=== PATIENT | female | born 1985 | race Caucasian/White ===

== ENCOUNTER 2016-12-02 18:16 | Inpatient (IN) ==
[2016-12-02] MEDS ORDERED: Naloxone 0.4 MG/ML INJ IVP ONE (18:19)
--- NOTE | 2016-12-02 18:27 | Emergency Department Note ---
Disposition Clinical Impression: Altered mental status Qualifiers: Altered mental status type: unspecified Qualified Code(s): R41.82 - Altered mental status, unspecified Disposition: Admitted As Inpatient Condition: Good Time of Disposition: 09:42 General Adult HPI - General Chief complaint: ED Altered Mental Status Stated complaint: AMS Time Seen by Provider: 12/02/16 18:19 Source: EMS Limitations: altered mental status - History of Present Illness Pain Scale: 0 - Related Data Home Medications Medication Instructions Recorded Confirmed Cetirizine HCl [Zyrtec] 10 mg PO DAILY 12/02/16 12/02/16 Fluticasone Propionate Nasal 100 mcg NS DAILY 12/02/16 12/02/16 [Flonase] Montelukast [Singulair] 10 mg PO QPM 12/02/16 12/02/16 Sertraline [Zoloft] 50 mg PO DAILY 12/02/16 12/02/16 Previous Rx's Medication Instructions Recorded OxyCODONE Immed Rel [Roxicodone 5 10 mg PO Q6HR PRN #20 tab 12/08/16 MG] Allergies Allergy/AdvReac Type Severity Reaction Status Date / Time NSAIDS (Non-Steroidal Allergy Dizziness Verified 10/01/16 00:00 Anti-Inflamma Past Medical History - Past Medical History Medical history: Reports: asthma Surgical history: Reports: cholecystectomy (03/2003) Psychiatric history: Reports: no psych history [employer] history: Reports: bilateral tubal ligation - Social History Smoking Status: Current every day smoker Smokeless Tobacco Status: No Alcohol use: Reports: none Drug use: Reports: none Physical Exam - General Limitations: altered mental status General appearance: restraints present Course Vital Signs Temperature 98.8 F 12/02/16 18:18 Pulse Rate 94 12/02/16 18:18 Respiratory Rate 16 12/02/16 18:18 Blood Pressure 109/68 12/02/16 18:18 O2 Sat by Pulse Oximetry 99 12/02/16 18:18 Temperature 98.3 F 12/08/16 07:30 Pulse Rate 76 12/08/16 07:30 Respiratory Rate 15 12/08/16 07:30 Blood Pressure 120/76 12/08/16 07:30 O2 Sat by Pulse Oximetry 97 12/08/16 07:30 Oxygen Delivery Oxygen Delivery Room Air Medical Decision Making - Lab Data Result diagrams: 12/08/16 01:05 12/08/16 01:05 Lab Results 12/02/16 12/02/16 12/02/16 Range/Units 18:29 18:29 18:29 WBC 7.9 (4.3-11.1) K/mcL RBC 4.81 (3.82-4.97) M/mcL Hgb 14.0 (11.5-15.4) g/dL Hct 40.0 (35.3-44.9) % MCV 83.2 (83.0-100.0) fL MCH 29.1 (28.0-33.3) pg MCHC 35.0 (31.6-35.5) g/dL RDW 12.6 (11.5-14.5) % Plt Count 290 (140-400) K/mcL MPV 9.4 (9.4-12.4) fL Immature Gran % 0.5 (0-4) % Seg Neutrophils % 68.3 % Lymphocytes % 23.4 % Monocytes % 7.1 % Eosinophils % 0.4 % Basophils % 0.3 % Neutrophils # 5.4 (1.6-8.9) K/mcL Lymphocytes # 1.8 (0.6-4.6) K/mcL Monocytes # 0.6 (0.0-1.3) K/mcL Eosinophils # 0.0 (0.0-0.6) K/mcL Basophils # 0.0 (0.0-0.2) K/mcL PT 12.1 (9.4-12.1) Seconds INR 1.1 APTT 31.6 (26.0-36.0) Seconds VBG pH (7.32-7.42) pH Units VBG pCO2 (41-51) mmHg VBG pO2 (25-40) mmHg VBG HCO3 (21-27) mEq/L Sodium 128 L (136-145) mEq/L Potassium 3.5 (3.5-4.5) mEq/L Chloride 95 L (98-109) mEq/L Carbon Dioxide 22 (19-29) mEq/L BUN 6 L (7-20) mg/dL Creatinine 0.74 (0.57-1.11) mg/dL Est GFR ( Amer) > 60 (> 60) Est GFR (Non-Af Amer) > 60 (> 60) BUN/Creatinine Ratio 8 (6-26) Glucose 115 H (70-99) mg/dL POC Glucose (58-89) Calculated Osmolality 265 L (280-300) Calcium 9.6 (8.6-10.8) mg/dL Ionized Calcium (1.15-1.35) mmol/L Phosphorus (2.3-4.7) mg/dL Magnesium (1.6-2.6) mg/dL Total Bilirubin 0.9 (0.2-1.2) mg/dL Direct Bilirubin 0.4 (0.0-0.5) mg/dL Indirect Bilirubin 0.5 (0.0-1.2) mg/dL AST 137 H (5-34) Units/L ALT 351 H (0-55) Units/L Alkaline Phosphatase 126 (38-126) Units/L Creatine Kinase 42 (29-168) Units/L Troponin I (0-0.03) ng/mL Serum Total Protein 7.8 (6.0-8.3) g/dL Albumin 4.0 (3.5-5.0) g/dL Globulin 3.8 H (2.4-3.5) g/dL Albumin/Globulin Ratio 1.1 (1.1-2.2) Urine Color (Yellow) Urine Clarity (Clear) Urine pH (5.0-8.0) pH Units Ur Specific [place] (1.010-1.025) Urine Protein (Neg-Trace) mg/dL Urine Glucose (UA) (Normal) mg/dL Urine Ketones (Negative) mg/dL Urine Blood (Negative) Urine Nitrite (Negative) Urine Bilirubin (Negative) Urine Urobilinogen (Normal) mg/dL Ur Leukocyte Esterase (Negative) Ur Culture Indicated? (NO) Urine Test (Negative) Salicylates (15-30) mg/dL Urine Opiates Screen (Sjfxsj=402) ng/mL Acetaminophen (10-30) mcg/mL Ur Barbiturates Screen (Coeyid=488) ng/mL Ur Phencyclidine Scrn (Cutoff=25) ng/mL Ur Amphetamines Screen (Ywopir=5588) ng/mL U Benzodiazepines Scrn (Mtuzih=523) ng/mL Urine Cocaine Screen (Cutoff= 300) ng/mL U Marijuana (THC) Screen (Cutoff = 50) ng/mL Ethyl Alcohol < 10 (0-10) mg/dL 12/02/16 12/02/16 12/02/16 Range/Units 18:29 18:29 18:32 WBC (4.3-11.1) K/mcL RBC (3.82-4.97) M/mcL Hgb (11.5-15.4) g/dL Hct (35.3-44.9) % MCV (83.0-100.0) fL MCH (28.0-33.3) pg MCHC (31.6-35.5) g/dL RDW (11.5-14.5) % Plt Count (140-400) K/mcL MPV (9.4-12.4) fL Immature Gran % (0-4) % Seg Neutrophils % % Lymphocytes % % Monocytes % % Eosinophils % % Basophils % % Neutrophils # (1.6-8.9) K/mcL Lymphocytes # (0.6-4.6) K/mcL Monocytes # (0.0-1.3) K/mcL Eosinophils # (0.0-0.6) K/mcL Basophils # (0.0-0.2) K/mcL PT (9.4-12.1) Seconds INR APTT (26.0-36.0) Seconds VBG pH (7.32-7.42) pH Units VBG pCO2 (41-51) mmHg VBG pO2 (25-40) mmHg VBG HCO3 (21-27) mEq/L Sodium (136-145) mEq/L Potassium (3.5-4.5) mEq/L Chloride (98-109) mEq/L Carbon Dioxide (19-29) mEq/L BUN (7-20) mg/dL Creatinine (0.57-1.11) mg/dL Est GFR ( Amer) (> 60) Est GFR (Non-Af Amer) (> 60) BUN/Creatinine Ratio (6-26) Glucose (70-99) mg/dL POC Glucose (58-89) Calculated Osmolality (280-300) Calcium (8.6-10.8) mg/dL Ionized Calcium (1.15-1.35) mmol/L Phosphorus (2.3-4.7) mg/dL Magnesium (1.6-2.6) mg/dL Total Bilirubin (0.2-1.2) mg/dL Direct Bilirubin (0.0-0.5) mg/dL Indirect Bilirubin (0.0-1.2) mg/dL AST (5-34) Units/L ALT (0-55) Units/L Alkaline Phosphatase (38-126) Units/L Creatine Kinase (29-168) Units/L Troponin I 0.00 (0-0.03) ng/mL Serum Total Protein (6.0-8.3) g/dL Albumin (3.5-5.0) g/dL Globulin (2.4-3.5) g/dL Albumin/Globulin Ratio (1.1-2.2) Urine Color Yellow (Yellow) Urine Clarity Clear (Clear) Urine pH 7.0 (5.0-8.0) pH Units Ur Specific [place] 1.006 L (1.010-1.025) Urine Protein Negative (Neg-Trace) mg/dL Urine Glucose (UA) Normal (Normal) mg/dL Urine Ketones 15 H (Negative) mg/dL Urine Blood Negative (Negative) Urine Nitrite Negative (Negative) Urine Bilirubin Negative (Negative) Urine Urobilinogen Normal (Normal) mg/dL Ur Leukocyte Esterase Negative (Negative) Ur Culture Indicated? NO (NO) Urine Test (Negative) Salicylates < 5.0 L (15-30) mg/dL Urine Opiates Screen (Gnogyh=460) ng/mL Acetaminophen < 1.0 L (10-30) mcg/mL Ur Barbiturates Screen (Xsbwyw=439) ng/mL Ur Phencyclidine Scrn (Cutoff=25) ng/mL Ur Amphetamines Screen (Iehhya=1448) ng/mL U Benzodiazepines Scrn (Yezmfh=785) ng/mL Urine Cocaine Screen (Cutoff= 300) ng/mL U Marijuana (THC) Screen (Cutoff = 50) ng/mL Ethyl Alcohol (0-10) mg/dL 12/02/16 12/02/16 12/02/16 Range/Units 18:32 18:32 19:12 WBC (4.3-11.1) K/mcL RBC (3.82-4.97) M/mcL Hgb (11.5-15.4) g/dL Hct (35.3-44.9) % MCV (83.0-100.0) fL MCH (28.0-33.3) pg MCHC (31.6-35.5) g/dL RDW (11.5-14.5) % Plt Count (140-400) K/mcL MPV (9.4-12.4) fL Immature Gran % (0-4) % Seg Neutrophils % % Lymphocytes % % Monocytes % % Eosinophils % % Basophils % % Neutrophils # (1.6-8.9) K/mcL Lymphocytes # (0.6-4.6) K/mcL Monocytes # (0.0-1.3) K/mcL Eosinophils # (0.0-0.6) K/mcL Basophils # (0.0-0.2) K/mcL PT (9.4-12.1) Seconds INR APTT (26.0-36.0) Seconds VBG pH 7.42 (7.32-7.42) pH Units VBG pCO2 38 L (41-51) mmHg VBG pO2 59 H (25-40) mmHg VBG HCO3 24.6 (21-27) mEq/L Sodium (136-145) mEq/L Potassium (3.5-4.5) mEq/L Chloride (98-109) mEq/L Carbon Dioxide (19-29) mEq/L BUN (7-20) mg/dL Creatinine (0.57-1.11) mg/dL Est GFR ( Amer) (> 60) Est GFR (Non-Af Amer) (> 60) BUN/Creatinine Ratio (6-26) Glucose (70-99) mg/dL POC Glucose (58-89) Calculated Osmolality (280-300) Calcium (8.6-10.8) mg/dL Ionized Calcium (1.15-1.35) mmol/L Phosphorus (2.3-4.7) mg/dL Magnesium (1.6-2.6) mg/dL Total Bilirubin (0.2-1.2) mg/dL Direct Bilirubin (0.0-0.5) mg/dL Indirect Bilirubin (0.0-1.2) mg/dL AST (5-34) Units/L ALT (0-55) Units/L Alkaline Phosphatase (38-126) Units/L Creatine Kinase (29-168) Units/L Troponin I (0-0.03) ng/mL Serum Total Protein (6.0-8.3) g/dL Albumin (3.5-5.0) g/dL Globulin (2.4-3.5) g/dL Albumin/Globulin Ratio (1.1-2.2) Urine Color (Yellow) Urine Clarity (Clear) Urine pH (5.0-8.0) pH Units Ur Specific [place] (1.010-1.025) Urine Protein (Neg-Trace) mg/dL Urine Glucose (UA) (Normal) mg/dL Urine Ketones (Negative) mg/dL Urine Blood (Negative) Urine Nitrite (Negative) Urine Bilirubin (Negative) Urine Urobilinogen (Normal) mg/dL Ur Leukocyte Esterase (Negative) Ur Culture Indicated? (NO) Urine Test Negative (Negative) Salicylates (15-30) mg/dL Urine Opiates Screen Negative (Oslvka=966) ng/mL Acetaminophen (10-30) mcg/mL Ur Barbiturates Screen Negative (Jnycnh=597) ng/mL Ur Phencyclidine Scrn Negative (Cutoff=25) ng/mL Ur Amphetamines Screen Negative (Bjtdpz=7216) ng/mL U Benzodiazepines Scrn Negative (Lxasgi=071) ng/mL Urine Cocaine Screen Negative (Cutoff= 300) ng/mL U Marijuana (THC) Screen Negative (Cutoff = 50) ng/mL Ethyl Alcohol (0-10) mg/dL 12/02/16 12/02/16 Range/Units 20:54 21:46 WBC (4.3-11.1) K/mcL RBC (3.82-4.97) M/mcL Hgb (11.5-15.4) g/dL Hct (35.3-44.9) % MCV (83.0-100.0) fL MCH (28.0-33.3) pg MCHC (31.6-35.5) g/dL RDW (11.5-14.5) % Plt Count (140-400) K/mcL MPV (9.4-12.4) fL Immature Gran % (0-4) % Seg Neutrophils % % Lymphocytes % % Monocytes % % Eosinophils % % Basophils % % Neutrophils # (1.6-8.9) K/mcL Lymphocytes # (0.6-4.6) K/mcL Monocytes # (0.0-1.3) K/mcL Eosinophils # (0.0-0.6) K/mcL Basophils # (0.0-0.2) K/mcL PT (9.4-12.1) Seconds INR APTT (26.0-36.0) Seconds VBG pH (7.32-7.42) pH Units VBG pCO2 (41-51) mmHg VBG pO2 (25-40) mmHg VBG HCO3 (21-27) mEq/L Sodium (136-145) mEq/L Potassium (3.5-4.5) mEq/L Chloride (98-109) mEq/L Carbon Dioxide (19-29) mEq/L BUN (7-20) mg/dL Creatinine (0.57-1.11) mg/dL Est GFR ( Amer) (> 60) Est GFR (Non-Af Amer) (> 60) BUN/Creatinine Ratio (6-26) Glucose (70-99) mg/dL POC Glucose 103 H (58-89) Calculated Osmolality (280-300) Calcium (8.6-10.8) mg/dL Ionized Calcium 1.06 L (1.15-1.35) mmol/L Phosphorus 2.6 (2.3-4.7) mg/dL Magnesium 1.3 L (1.6-2.6) mg/dL Total Bilirubin (0.2-1.2) mg/dL Direct Bilirubin (0.0-0.5) mg/dL Indirect Bilirubin (0.0-1.2) mg/dL AST (5-34) Units/L ALT (0-55) Units/L Alkaline Phosphatase (38-126) Units/L Creatine Kinase (29-168) Units/L Troponin I (0-0.03) ng/mL Serum Total Protein (6.0-8.3) g/dL Albumin (3.5-5.0) g/dL Globulin (2.4-3.5) g/dL Albumin/Globulin Ratio (1.1-2.2) Urine Color (Yellow) Urine Clarity (Clear) Urine pH (5.0-8.0) pH Units Ur Specific [place] (1.010-1.025) Urine Protein (Neg-Trace) mg/dL Urine Glucose (UA) (Normal) mg/dL Urine Ketones (Negative) mg/dL Urine Blood (Negative) Urine Nitrite (Negative) Urine Bilirubin (Negative) Urine Urobilinogen (Normal) mg/dL Ur Leukocyte Esterase (Negative) Ur Culture Indicated? (NO) Urine Test (Negative) Salicylates (15-30) mg/dL Urine Opiates Screen (Rmdoiu=097) ng/mL Acetaminophen (10-30) mcg/mL Ur Barbiturates Screen (Zjkyya=762) ng/mL Ur Phencyclidine Scrn (Cutoff=25) ng/mL Ur Amphetamines Screen (Unfvzi=2999) ng/mL U Benzodiazepines Scrn (Usekbj=680) ng/mL Urine Cocaine Screen (Cutoff= 300) ng/mL U Marijuana (THC) Screen (Cutoff = 50) ng/mL Ethyl Alcohol (0-10) mg/dL Critical Care Time Critical Care Time: Yes Total Critical Care Time: 60 Attestation: Presented with altered mental status requiring extensive workup and admission to the hospital Attestation Statement - Attestation Attestation: I examined this patient and my medical decision-making was reviewed with the Resident Physician. I agree with the documented findings, disposition and treatment plan as described except to the extent set forth below. [id number] time provided Patient presents by EMS with alteration in mental status. She was unable to convey any meaningful history upon arrival. She does respond to painful stimuli and to the ammonia capsule. She is unable to answer my questions or follow commands with intent and purpose. Etiology uncertain. Workup to evaluate for acute infectious or metabolic process. She will also receive a CT scan of her head and urine drug screen. 18:59: Patient required IV Valium for completion of her CT scan. She did become agitated in the CT scanner. 19:59: CT result as transcribed by the radiologist shows motion artifact versus ischemic changes. I favor the former. Her physical symptoms are not consistent with an acute ischemic stroke
[2016-12-02 18:43] LABS: Basophils % 0.3 %; Eosinophils % 0.4 %; Immature Granulocytes % 0.5 % (0-4); Lymphocytes # 1.8 K/mcL (0.6-4.6); Lymphocytes % 23.4 %; Mean Corpuscular Hemoglobin 29.1 pg (28.0-33.3); Mean Corpuscular Volume 83.2 fL (83.0-100.0); Mean Platelet Volume 9.4 fL (9.4-12.4); Monocytes # 0.6 K/mcL (0.0-1.3); Monocytes % 7.1 %; Neutrophils # 5.4 K/mcL (1.6-8.9); Platelet Count 290 K/mcL (140-400); Red Blood Count 4.81 M/mcL (3.82-4.97); Red Cell Distribution Width 12.6 % (11.5-14.5); Segmented Neutrophils % 68.3 %
[2016-12-02 18:48] LABS: INR 1.1; Prothrombin Time 12.1 Seconds (9.4-12.1)
[2016-12-02] MEDS ORDERED: diazePAM 10 MG/2 ML SYRINGE ONE (18:48)
[2016-12-02 18:50] LABS: Bilirubin,Urine Negative (Negative); Blood,Urine Negative (Negative); Clarity,Urine Clear (Clear); Color,Urine Yellow (Yellow); Glucose,Urine (UA) Normal (Normal); Ketones,Urine 15 mg/dL (Negative); Leukocyte Esterase,Urine Negative (Negative); Nitrite,Urine Negative (Negative); Protein,Urine Negative (Neg-Trace); Specific Gravity,Urine 1.006 (1.010-1.025); Urobilinogen,Urine Normal (Normal)
[2016-12-02 18:51] LABS: Activated Partial Thrombo Time 31.6 Seconds (26.0-36.0)
[2016-12-02 18:55] LABS: Amphetamine Screen,Urine Negative ng/mL (Cutoff=1000); Barbiturate Screen,Urine Negative ng/mL (Cutoff=200); Benzodiazepines Screen,Urine Negative ng/mL (Cutoff=200); Cannabinoid Screen,Urine Negative ng/mL (Cutoff = 50); Cocaine Screen,Urine Negative ng/mL (Cutoff= 300); Opiate Screen,Urine Negative ng/mL (Cutoff=300); Phencyclidine Screen,Urine Negative ng/mL (Cutoff=25)
[2016-12-02 18:59] LABS: Acetaminophen < 1.0 mcg/mL (10-30); Alanine Aminotransferase 351 Units/L (0-55); Albumin/Globulin Ratio 1.1 (1.1-2.2); Alkaline Phosphatase 126 Units/L (38-126); Aspartate Amino Transferase 137 Units/L (5-34); BUN/Creatinine Ratio 8 (6-26); Bilirubin,Direct 0.4 mg/dL (0.0-0.5); Bilirubin,Indirect 0.5 mg/dL (0.0-1.2); Bilirubin,Total 0.9 mg/dL (0.2-1.2); Blood Urea Nitrogen 6 mg/dL (7-20); Calcium 9.6 mg/dL (8.6-10.8); Carbon Dioxide 22 mEq/L (19-29); Chloride 95 mEq/L (98-109); Ethanol < 10 mg/dL (0-10); Globulin 3.8 g/dL (2.4-3.5); Glucose 115 mg/dL (70-99); Osmolality,Calculated 265 (280-300); Potassium 3.5 mEq/L (3.5-4.5); Salicylate < 5.0 mg/dL (15-30); Sodium 128 mEq/L (136-145); Total Protein 7.8 g/dL (6.0-8.3); eGFR For African Americans > 60 (> 60); eGFR For Non-African Americans > 60 (> 60)
[2016-12-02 19:09] LABS: Creatine Kinase 42 Units/L (29-168)
[2016-12-02] MEDS ORDERED: 0.9 % Sodium Chloride 1,000 ML IVC ONE (19:14)
--- NOTE | 2016-12-02 19:17 | Emergency Department Note ---
Disposition Clinical Impression: Altered mental status Qualifiers: Altered mental status type: unspecified Qualified Code(s): R41.82 - Altered mental status, unspecified Disposition: Admitted As Inpatient Condition: Fair Referrals: NO,PCP [Primary Care Provider] - Forms: ED Satisfaction Letter Time of Disposition: 19:28 Altered Mental Status HPI - General Chief Complaint: ED Altered Mental Status Stated Complaint: AMS Time Seen by Provider: 12/02/16 18:19 Source: EMS Mode of arrival: EMS Limitations: altered mental status Nursing Notes Reviewed: Yes Vital Signs Reviewed: Yes - History of Present Illness HPI Narrative: 31-year-old female presents EMS for altered mental status. EMS reports the patient was found the home unresponsive. She was initially combative. States around 1400 this afternoon she had been complaining of a migraine headache. Upon presentation else at bedside on arrival patient was initially unresponsive but responded to Ammonia tablet. Pupils were equal round and reactive were not constructed. Narcan was given with no response. Initial Accu check by EMS was 104. She is not have any family members or bystanders at bedside to assist with evaluation. She will occasionally awaken but quickly goes back to supine. No obvious signs of trauma. Concern this may be a post ictal state or polysubstance use. Altered mental status workup initiated, CT of the head and cervical spine, aspiration precautions, urinalysis with Theodore catheter, tox screen. Patient is not have signs of a rash to suggest infection or meningitis. She is afebrile. - Related Data Home Medications Medication Instructions Recorded Confirmed Cetirizine HCl [Zyrtec] 10 mg PO DAILY 12/02/16 12/02/16 Fluticasone Propionate Nasal 100 mcg NS DAILY 12/02/16 12/02/16 [Flonase] Montelukast [Singulair] 10 mg PO QPM 12/02/16 12/02/16 Sertraline [Zoloft] 50 mg PO DAILY 12/02/16 12/02/16 Allergies Allergy/AdvReac Type Severity Reaction Status Date / Time NSAIDS (Non-Steroidal Allergy Dizziness Verified 10/01/16 00:00 Anti-Inflamma Limitations: ROS unobtainable due to patients medical condition Past Medical History - Past Medical History Source: unable to obtain Medical history: Reports: asthma Surgical history: Reports: cholecystectomy (03/2003) Psychiatric history: Reports: no psych history 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 - Social History Smoking Status: Current every day smoker Smokeless Tobacco Status: No Alcohol use: Reports: none Drug use: Reports: none Physical Exam - General Limitations: altered mental status General appearance: in no apparent distress, obtunded, restraints present - Head Head exam: atraumatic, normocephalic, normal inspection - Eye Eye exam: Present: normal appearance, PERRL, EOMI, mydriasis - ENT ENT exam: normal exam, normal oropharynx, mucous membranes moist - Neck Neck exam: Present: normal inspection, full ROM, trachea midline - Chest Chest inspection: Present: normal inspection, symmetric chest wall rise - Respiratory Respiratory exam: Present: normal lung sounds bilaterally. Absent: respiratory distress, wheezes - Cardiovascular Cardiovascular exam: Present: regular rate, normal rhythm, normal heart sounds - Abdominal Exam Abdominal exam: Present: soft, Non-Tender, normal bowel sounds. Absent: tenderness, distention, guarding, rebound, rigidity - Extremities Exam Extremities exam: Present: normal inspection, full ROM, normal capillary refill. Absent: tenderness, pedal edema - Psychiatric Psychiatric exam: Present: flat affect Course Course Narrative: 31-year-old female presents with altered mental status. No signs of trauma. No rash patient is afebrile. She was responsive to ammonia tablet. Initial POC glucose 104 via EMS. Glucose is 115 here. Moves all 4 extremities without any focal neural deficits. Withdrawals the pain and opens her eyes. She is protecting her airway with good oxygen saturation. Her workup here is negative for any toxic substance, intracranial abnormality, or infection. There is concern for motion artifact vs possible posterior occipital attenuation but clinically this is not consistent with presentation to suggest acute ischemic stroke. Will not continue with additional imaging such as MRI. Possible concern for dehydration with low sodium 128. Will give her normal saline fluids to replenish. She required 10 mg of Valium to allow for proper evaluation with CT imaging. She is currently appended from the medication. CT of the head cervical spine are negative. She will require admission for her altered mental status and observation. - Consultations Consultation #1: Spoke with on-call hospitalist geo Mitchell to admit for altered mental status. No further orders at this time Vital Signs Temperature 98.8 F 12/02/16 18:18 Pulse Rate 94 12/02/16 18:18 Respiratory Rate 16 12/02/16 18:18 Blood Pressure 109/68 12/02/16 18:18 O2 Sat by Pulse Oximetry 99 12/02/16 18:18 Temperature 98.4 F 12/02/16 19:39 Pulse Rate 75 12/02/16 19:39 Respiratory Rate 16 12/02/16 19:39 Blood Pressure 108/73 12/02/16 19:39 O2 Sat by Pulse Oximetry 98 12/02/16 19:39 Oxygen Delivery Oxygen Delivery Room Air Altered Mental Status - Medical Records Medical records reviewed: Yes I reviewed the patient's medical records. - Lab Data Lab results reviewed: Yes I reviewed the patient's lab results. Result diagrams: 12/02/16 18:29 12/02/16 18:29 Lab Results 12/02/16 12/02/16 12/02/16 Range/Units 18:29 18:29 18:29 WBC 7.9 (4.3-11.1) K/mcL RBC 4.81 (3.82-4.97) M/mcL Hgb 14.0 (11.5-15.4) g/dL Hct 40.0 (35.3-44.9) % MCV 83.2 (83.0-100.0) fL MCH 29.1 (28.0-33.3) pg MCHC 35.0 (31.6-35.5) g/dL RDW 12.6 (11.5-14.5) % Plt Count 290 (140-400) K/mcL MPV 9.4 (9.4-12.4) fL Immature Gran % 0.5 (0-4) % Seg Neutrophils % 68.3 % Lymphocytes % 23.4 % Monocytes % 7.1 % Eosinophils % 0.4 % Basophils % 0.3 % Neutrophils # 5.4 (1.6-8.9) K/mcL Lymphocytes # 1.8 (0.6-4.6) K/mcL Monocytes # 0.6 (0.0-1.3) K/mcL Eosinophils # 0.0 (0.0-0.6) K/mcL Basophils # 0.0 (0.0-0.2) K/mcL PT 12.1 (9.4-12.1) Seconds INR 1.1 APTT 31.6 (26.0-36.0) Seconds VBG pH (7.32-7.42) pH Units VBG pCO2 (41-51) mmHg VBG pO2 (25-40) mmHg VBG HCO3 (21-27) mEq/L Sodium 128 L (136-145) mEq/L Potassium 3.5 (3.5-4.5) mEq/L Chloride 95 L (98-109) mEq/L Carbon Dioxide 22 (19-29) mEq/L BUN 6 L (7-20) mg/dL Creatinine 0.74 (0.57-1.11) mg/dL Est GFR ( Amer) > 60 (> 60) Est GFR (Non-Af Amer) > 60 (> 60) BUN/Creatinine Ratio 8 (6-26) Glucose 115 H (70-99) mg/dL Calculated Osmolality 265 L (280-300) Calcium 9.6 (8.6-10.8) mg/dL Total Bilirubin 0.9 (0.2-1.2) mg/dL Direct Bilirubin 0.4 (0.0-0.5) mg/dL Indirect Bilirubin 0.5 (0.0-1.2) mg/dL AST 137 H (5-34) Units/L ALT 351 H (0-55) Units/L Alkaline Phosphatase 126 (38-126) Units/L Creatine Kinase 42 (29-168) Units/L Troponin I (0-0.03) ng/mL Serum Total Protein 7.8 (6.0-8.3) g/dL Albumin 4.0 (3.5-5.0) g/dL Globulin 3.8 H (2.4-3.5) g/dL Albumin/Globulin Ratio 1.1 (1.1-2.2) Urine Color (Yellow) Urine Clarity (Clear) Urine pH (5.0-8.0) pH Units Ur Specific [place] (1.010-1.025) Urine Protein (Neg-Trace) mg/dL Urine Glucose (UA) (Normal) mg/dL Urine Ketones (Negative) mg/dL Urine Blood (Negative) Urine Nitrite (Negative) Urine Bilirubin (Negative) Urine Urobilinogen (Normal) mg/dL Ur Leukocyte Esterase (Negative) Ur Culture Indicated? (NO) Urine Test (Negative) Salicylates (15-30) mg/dL Urine Opiates Screen (Gxdgfu=287) ng/mL Acetaminophen (10-30) mcg/mL Ur Barbiturates Screen (Dfpskr=662) ng/mL Ur Phencyclidine Scrn (Cutoff=25) ng/mL Ur Amphetamines Screen (Ekjmao=8280) ng/mL U Benzodiazepines Scrn (Lutrnm=127) ng/mL Urine Cocaine Screen (Cutoff= 300) ng/mL U Marijuana (THC) Screen (Cutoff = 50) ng/mL Ethyl Alcohol < 10 (0-10) mg/dL 12/02/16 12/02/16 12/02/16 Range/Units 18:29 18:29 18:32 WBC (4.3-11.1) K/mcL RBC (3.82-4.97) M/mcL Hgb (11.5-15.4) g/dL Hct (35.3-44.9) % MCV (83.0-100.0) fL MCH (28.0-33.3) pg MCHC (31.6-35.5) g/dL RDW (11.5-14.5) % Plt Count (140-400) K/mcL MPV (9.4-12.4) fL Immature Gran % (0-4) % Seg Neutrophils % % Lymphocytes % % Monocytes % % Eosinophils % % Basophils % % Neutrophils # (1.6-8.9) K/mcL Lymphocytes # (0.6-4.6) K/mcL Monocytes # (0.0-1.3) K/mcL Eosinophils # (0.0-0.6) K/mcL Basophils # (0.0-0.2) K/mcL PT (9.4-12.1) Seconds INR APTT (26.0-36.0) Seconds VBG pH (7.32-7.42) pH Units VBG pCO2 (41-51) mmHg VBG pO2 (25-40) mmHg VBG HCO3 (21-27) mEq/L Sodium (136-145) mEq/L Potassium (3.5-4.5) mEq/L Chloride (98-109) mEq/L Carbon Dioxide (19-29) mEq/L BUN (7-20) mg/dL Creatinine (0.57-1.11) mg/dL Est GFR ( Amer) (> 60) Est GFR (Non-Af Amer) (> 60) BUN/Creatinine Ratio (6-26) Glucose (70-99) mg/dL Calculated Osmolality (280-300) Calcium (8.6-10.8) mg/dL Total Bilirubin (0.2-1.2) mg/dL Direct Bilirubin (0.0-0.5) mg/dL Indirect Bilirubin (0.0-1.2) mg/dL AST (5-34) Units/L ALT (0-55) Units/L Alkaline Phosphatase (38-126) Units/L Creatine Kinase (29-168) Units/L Troponin I 0.00 (0-0.03) ng/mL Serum Total Protein (6.0-8.3) g/dL Albumin (3.5-5.0) g/dL Globulin (2.4-3.5) g/dL Albumin/Globulin Ratio (1.1-2.2) Urine Color Yellow (Yellow) Urine Clarity Clear (Clear) Urine pH 7.0 (5.0-8.0) pH Units Ur Specific [place] 1.006 L (1.010-1.025) Urine Protein Negative (Neg-Trace) mg/dL Urine Glucose (UA) Normal (Normal) mg/dL Urine Ketones 15 H (Negative) mg/dL Urine Blood Negative (Negative) Urine Nitrite Negative (Negative) Urine Bilirubin Negative (Negative) Urine Urobilinogen Normal (Normal) mg/dL Ur Leukocyte Esterase Negative (Negative) Ur Culture Indicated? NO (NO) Urine Test (Negative) Salicylates < 5.0 L (15-30) mg/dL Urine Opiates Screen (Gnpuvr=888) ng/mL Acetaminophen < 1.0 L (10-30) mcg/mL Ur Barbiturates Screen (Bcrtiq=224) ng/mL Ur Phencyclidine Scrn (Cutoff=25) ng/mL Ur Amphetamines Screen (Qmotqy=4955) ng/mL U Benzodiazepines Scrn (Tikmtw=865) ng/mL Urine Cocaine Screen (Cutoff= 300) ng/mL U Marijuana (THC) Screen (Cutoff = 50) ng/mL Ethyl Alcohol (0-10) mg/dL 12/02/16 12/02/16 12/02/16 Range/Units 18:32 18:32 19:12 WBC (4.3-11.1) K/mcL RBC (3.82-4.97) M/mcL Hgb (11.5-15.4) g/dL Hct (35.3-44.9) % MCV (83.0-100.0) fL MCH (28.0-33.3) pg MCHC (31.6-35.5) g/dL RDW (11.5-14.5) % Plt Count (140-400) K/mcL MPV (9.4-12.4) fL Immature Gran % (0-4) % Seg Neutrophils % % Lymphocytes % % Monocytes % % Eosinophils % % Basophils % % Neutrophils # (1.6-8.9) K/mcL Lymphocytes # (0.6-4.6) K/mcL Monocytes # (0.0-1.3) K/mcL Eosinophils # (0.0-0.6) K/mcL Basophils # (0.0-0.2) K/mcL PT (9.4-12.1) Seconds INR APTT (26.0-36.0) Seconds VBG pH 7.42 (7.32-7.42) pH Units VBG pCO2 38 L (41-51) mmHg VBG pO2 59 H (25-40) mmHg VBG HCO3 24.6 (21-27) mEq/L Sodium (136-145) mEq/L Potassium (3.5-4.5) mEq/L Chloride (98-109) mEq/L Carbon Dioxide (19-29) mEq/L BUN (7-20) mg/dL Creatinine (0.57-1.11) mg/dL Est GFR ( Amer) (> 60) Est GFR (Non-Af Amer) (> 60) BUN/Creatinine Ratio (6-26) Glucose (70-99) mg/dL Calculated Osmolality (280-300) Calcium (8.6-10.8) mg/dL Total Bilirubin (0.2-1.2) mg/dL Direct Bilirubin (0.0-0.5) mg/dL Indirect Bilirubin (0.0-1.2) mg/dL AST (5-34) Units/L ALT (0-55) Units/L Alkaline Phosphatase (38-126) Units/L Creatine Kinase (29-168) Units/L Troponin I (0-0.03) ng/mL Serum Total Protein (6.0-8.3) g/dL Albumin (3.5-5.0) g/dL Globulin (2.4-3.5) g/dL Albumin/Globulin Ratio (1.1-2.2) Urine Color (Yellow) Urine Clarity (Clear) Urine pH (5.0-8.0) pH Units Ur Specific [place] (1.010-1.025) Urine Protein (Neg-Trace) mg/dL Urine Glucose (UA) (Normal) mg/dL Urine Ketones (Negative) mg/dL Urine Blood (Negative) Urine Nitrite (Negative) Urine Bilirubin (Negative) Urine Urobilinogen (Normal) mg/dL Ur Leukocyte Esterase (Negative) Ur Culture Indicated? (NO) Urine Test Negative (Negative) Salicylates (15-30) mg/dL Urine Opiates Screen Negative (Hsrjoo=302) ng/mL Acetaminophen (10-30) mcg/mL Ur Barbiturates Screen Negative (Fsifzg=453) ng/mL Ur Phencyclidine Scrn Negative (Cutoff=25) ng/mL Ur Amphetamines Screen Negative (Kfnfec=1642) ng/mL U Benzodiazepines Scrn Negative (Ollofl=549) ng/mL Urine Cocaine Screen Negative (Cutoff= 300) ng/mL U Marijuana (THC) Screen Negative (Cutoff = 50) ng/mL Ethyl Alcohol (0-10) mg/dL - Radiology Data Radiology results reviewed: Yes I reviewed the patient's radiology results. Cervical Spine CT 12/02/16 18:20 IMPRESSION: 1. The head CT is limited by partial omission of the skullbase from the examination. 2. No acute intracranial hemorrhage or mass. 3. Subtle asymmetric focus of low attenuation within the left occipital lobe may suggest acute ischemic change in the clinical setting. Suggest clinical correlation, and if concerning, consider a follow-up brain MRI for further characterization. 4. Reversal of the normal cervical lordosis, without acute fracture or subluxation of the cervical spine. 5. 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 6. Multilevel degenerative disc disease, as detailed above, with associated multilevel central canal and neural foraminal stenoses. This could be further characterized and better evaluated with a follow-up cervical MRI, if clinically feasible. D/ / Suresh Ortiz MD / Suresh Ortiz MD Interpreting Provider: Suresh Ortiz MD Chest X-Ray 12/02/16 18:20 IMPRESSION: No acute cardiopulmonary disease. D/ / 12/02/2016 19:36:09 Suresh Ortiz MD / freddy Interpreting Provider: Suresh Ortiz MD Head CT 12/02/16 18:20 IMPRESSION: 1. The head CT is limited by partial omission of the skullbase from the examination. 2. No acute intracranial hemorrhage or mass. 3. Subtle asymmetric focus of low attenuation within the left occipital lobe may suggest acute ischemic change in the clinical setting. Suggest clinical correlation, and if concerning, consider a follow-up brain MRI for further characterization. 4. Reversal of the normal cervical lordosis, without acute fracture or subluxation of the cervical spine. 5. 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 6. Multilevel degenerative disc disease, as detailed above, with associated multilevel central canal and neural foraminal stenoses. This could be further characterized and better evaluated with a follow-up cervical MRI, if clinically feasible. D/ / Suresh Ortiz MD / Suresh Ortiz MD Interpreting Provider: Suresh Ortiz MD - EKG Data EKG attestation: Yes I reviewed and interpreted this EKG. EKG results narrative: EKG performed 1939 normal sinus rhythm 69 bpm, poor R-R wave progression, no significant ST elevation or depressions, poor conduction. Intervals are within normal limits. Compared to old EKG performed 12/05/2002 shows consistent findings. No acute ischemic changes. TPA Checklist - LKW: 3-4.5 hrs Add. Warnings/Precautions Patient/family understanding: The patient/family members have been counseled and understood the risk, benefit , and alternatives of treatment.
[2016-12-02 19:20] LABS: VBG HCO3 24.6 mEq/L (21-27); VBG PH 7.42 pH Units (7.32-7.42)
--- NOTE | 2016-12-02 20:13 | Internal Med History&Physical ---
<Mari Hernandez - Last Filed: 12/02/16 23:37> Date of Encounter: 12/02/16 Time of Encounter: 20:10 Assessment and Plan (1) Altered mental status Current visit: Yes Status: Acute Patient was found combative at home by family members. EMS was called. Workup in the emergency department showed a normal tox screen, head CT was no acute process but possible artifact. She did have some mild hyponatremia. Patient is moving all of her extremities well. Her pupils are equal and reactive to light. She does appear to have some improvement in her mentation from when she was in the emergency department. We will continue to monitor for improvement. I am concerned for possible drug ingestion of a substance that we do not test for. Plan: Monior Pt for self destructive behavior monitor for neuro status Restraints as needed to prevent self-destructive behavior. We will advance her diet as soon as her mentation improves. Qualifiers: Altered mental status type: delirium Qualified Code(s): R41.0 - Disorientation, unspecified (2) Hyponatremia Current visit: Yes Status: Acute (3) Encephalopathy acute Current visit: Yes Status: Acute Likely secondary to possible ingestion. Plan as above Internal Medicine - H&P: HPI Admitted From: Emergency Dept History of present illness: Ms. Cheng is a 31 year old female who and unresponsive at her home. EMS was called. EMS her blood glucose was found to be within normal limits. They say she was initially very combative at home. Since she has been in the emergency department she has only responded with inaudible words. Head CT was read as no acute process however there was some motion artifact. Patient was given valium to calm down and facilitate a head CT. Her drug screen was negative. Her glucose was normal. Her lab workup is remarkably normal with the exception she is mildly hyponatremic. On her arrival to the ICU she was taken out of restraints. She is resting comfortably in bed. Pt is tearful but you are able to understand when she states she "wants her baby." She does not appear to be in any distress. She is moving all 4 extremities well. Her pupils are equal and reactive bilaterally. We will continue to monitor patient's mental status as it does appear to be improving. An MRI does not appear to be feasible at this time. She would require sedation to keep her still. Past Med Surg Social Fam HX - Past Medical History Medical history: asthma Psychiatric history: no psych history - Past Surgical History Surgical History: cholecystectomy (03/2003) - Social History Smoking Status: Current every day smoker Smokeless Tobacco Status: No Alcohol use: none Drug use: none Internal Medicine - H&P: Meds Cetirizine HCl [Zyrtec] 10 mg PO DAILY 12/02/16 [History] Fluticasone Propionate Nasal [Flonase] 100 mcg NS DAILY 12/02/16 [History] Montelukast [Singulair] 10 mg PO QPM 12/02/16 [History] Sertraline [Zoloft] 50 mg PO DAILY 12/02/16 [History] Allergies NSAIDS (Non-Steroidal Anti-Inflamma Allergy (Verified 10/01/16 00:00) Dizziness ROS unobtainable: due to mental status (Patient has an altered level of consciousness. She is only making inaudible words. She is easily arousable but quickly falls back to sleep.) All Systems PM: A 10-system review of systems was performed and is negative for pertinent findings except as documented above in the HPI. - Constitutional Vitals: Temp Pulse Resp BP Pulse Ox 98.4 F 75 16 108/73 98 12/02/16 19:39 12/02/16 19:39 12/02/16 19:39 12/02/16 19:39 12/02/16 19:39 General appearance: Present: A&O X 0, no acute distress - Head Head exam: Present: atraumatic, normocephalic - Eye Eye exam: Present: EOMI, normal appearance, PERRL. Absent: conjunctival injection, periorbital swelling, scleral icterus Pupils: Present: normal accommodation, PERRL - Neck Neck exam general surgery: Present: full ROM, normal inspection, supple, trachea midline. Absent: lymphadenopathy, nuchal rigidity - Respiratory Respiratory exam: Present: CTAB. Absent: accessory muscle use, rales, respiratory distress, rhonchi, stridor, tachypnea - Cardiovascular Cardiovascular exam: Present: RRR. Absent: JVD, rubs - GI/Abdominal GI/Abdominal exam: Present: soft, no peritoneal signs. Absent: distended, firm , guarding, rigid - Extremities Exam Extremities exam: Present: full ROM, normal capillary refill, normal inspection , warm, radial pulses palpable and symetrical. Absent: pedal edema, tenderness - Neurological Exam Neurological exam: Present: altered - Skin Skin exam: Present: intact, normal color, warm. Absent: abrasion, cyanosis, erythema, rash Internal Med - H&P Results - Labs CBC & Chem 7: 12/02/16 18:29 12/02/16 18:29 Labs: Short CBC 12/02/16 Range/Units 18:29 WBC 7.9 (4.3-11.1) K/mcL Hgb 14.0 (11.5-15.4) g/dL Hct 40.0 (35.3-44.9) % Plt Count 290 (140-400) K/mcL Neutrophils # 5.4 (1.6-8.9) K/mcL BMP 12/02/16 18:29 Sodium 128 L Potassium 3.5 Chloride 95 L Carbon Dioxide 22 BUN 6 L Creatinine 0.74 Glucose 115 H Calcium 9.6 Cardiac Enzymes 12/02/16 Range/Units 18:29 Troponin I 0.00 (0-0.03) ng/mL Liver Function 12/02/16 Range/Units 18:29 Total Bilirubin 0.9 (0.2-1.2) mg/dL Direct Bilirubin 0.4 (0.0-0.5) mg/dL AST 137 H (5-34) Units/L ALT 351 H (0-55) Units/L Alkaline Phosphatase 126 (38-126) Units/L Albumin 4.0 (3.5-5.0) g/dL Urine 12/02/16 Range/Units 18:32 Urine Color Yellow (Yellow) Urine Clarity Clear (Clear) Urine pH 7.0 (5.0-8.0) pH Units Ur Specific [place] 1.006 L (1.010-1.025) Urine Protein Negative (Neg-Trace) mg/dL Urine Glucose (UA) Normal (Normal) mg/dL - ABG Interpretation ABG results: 12/02/16 19:12 VBG pH 7.42 VBG pCO2 38 L VBG pO2 59 H VBG HCO3 24.6 - Impressions ITS Impressions Cervical Spine CT 12/02/16 18:20 IMPRESSION: 1. The head CT is limited by partial omission of the skullbase from the examination. 2. No acute intracranial hemorrhage or mass. 3. Subtle asymmetric focus of low attenuation within the left occipital lobe may suggest acute ischemic change in the clinical setting. Suggest clinical correlation, and if concerning, consider a follow-up brain MRI for further characterization. 4. Reversal of the normal cervical lordosis, without acute fracture or subluxation of the cervical spine. 5. 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 6. Multilevel degenerative disc disease, as detailed above, with associated multilevel central canal and neural foraminal stenoses. This could be further characterized and better evaluated with a follow-up cervical MRI, if clinically feasible. D/ / Suresh Ortiz MD / Suresh Ortiz MD Interpreting Provider: Suresh Ortiz MD Chest X-Ray 12/02/16 18:20 IMPRESSION: No acute cardiopulmonary disease. D/ / 12/02/2016 19:36:09 Suresh Ortiz MD / [email or web address] Interpreting Provider: Suresh Ortiz MD Head CT 12/02/16 18:20 IMPRESSION: 1. The head CT is limited by partial omission of the skullbase from the examination. 2. No acute intracranial hemorrhage or mass. 3. Subtle asymmetric focus of low attenuation within the left occipital lobe may suggest acute ischemic change in the clinical setting. Suggest clinical correlation, and if concerning, consider a follow-up brain MRI for further characterization. 4. Reversal of the normal cervical lordosis, without acute fracture or subluxation of the cervical spine. 5. 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 6. Multilevel degenerative disc disease, as detailed above, with associated multilevel central canal and neural foraminal stenoses. This could be further characterized and better evaluated with a follow-up cervical MRI, if clinically feasible. D/ / Suresh Ortiz MD / Suresh Ortiz MD Interpreting Provider: Suresh Ortiz MD <Yony Moss - Last Filed: 12/03/16 00:16> Date of Encounter: 12/03/16 Internal Medicine - H&P: HPI History of present illness: Ms. Cheng is a 31 year old female All Systems PM: A 10-system review of systems was performed and is negative for pertinent findings except as documented above in the HPI. - Constitutional Vitals: Temp Pulse Resp BP Pulse Ox 97.4 F L 67 16 111/70 97 12/02/16 21:09 12/02/16 23:45 12/02/16 23:00 12/02/16 23:00 12/02/16 23:00 Internal Med - H&P Results - Labs CBC & Chem 7: 12/02/16 18:29 12/02/16 18:29 - Attending Attestation I have seen and examined the patient. I have discussed about the patient with Dr. Hernandez. I have reviewed the orders and the note. Patient is a 31-year-old female with no significant past medical history. Patient was brought to the ED by EMS. Patient was initially found unresponsive at home. She then became combative. Initial Accu-Chek was within normal limits. Narcan was given in the ED. Chest x-ray is negative for any acute process. CT abdomen and pelvis is negative for any acute process. CT of the cervical spine shows suspected congenital cervical spinal canal stenosis and multilevel degenerative disc disease with central canal and neural foraminal stenosis. Follow-up MRI pending. CT of the brain revealed no acute intracranial hemorrhage or mass but there is a focus of low attenuation within the left occipital lobe which may suggest acute ischemic change. MRI pending. Patient does have mild hyponatremia and her urine drug screen is negative. Patient is being admitted for acute encephalopathy likely metabolic, possibly drug induced Continue close monitoring, supportive care and observation in the ICU.
[2016-12-02 22:16] LABS: Ionized Calcium 1.06 mmol/L (1.15-1.35)
[2016-12-02 22:24] LABS: Magnesium 1.3 mg/dL (1.6-2.6); Phosphorous 2.6 mg/dL (2.3-4.7)
[2016-12-03] MEDS ORDERED: Acetaminophen 325 MG TABLET PO PRN (00:07)
[2016-12-03] MEDS ORDERED: Ondansetron 4 MG/2 ML VIAL IVP PRN ×3 (00:07→08:39)
[2016-12-03] MEDS ORDERED: Naloxone 0.4 MG/ML INJ IVP PRN ×2 (00:07→05:38)
[2016-12-03] MEDS ORDERED: Magnesium Sulfate 2 GM in D5% in Water 100 ML IVPB ONE (00:10)
[2016-12-03] MEDS ORDERED: 0.9 % Sodium Chloride 1,000 ML IVC SCH ×2 (00:15→05:38)
[2016-12-03 05:44] LABS: Hematocrit 40.6 % (35.3-44.9); Hemoglobin 13.8 g/dL (11.5-15.4); Mean Corpuscular Hemoglobin 29.1 pg (28.0-33.3); Mean Corpuscular Volume 85.7 fL (83.0-100.0); Mean Platelet Volume 9.8 fL (9.4-12.4); Platelet Count 301 K/mcL (140-400); Red Blood Count 4.74 M/mcL (3.82-4.97); Red Cell Distribution Width 12.6 % (11.5-14.5)
[2016-12-03] MEDS ORDERED: *HR* Heparin 5,000 UNIT/ML VIAL SQ SCH (06:00)
[2016-12-03] MEDS: *HR* Heparin 5,000 UNIT/ML VIAL SQ SCH ×2 (06:08→20:34)
[2016-12-03] MEDS: Pantoprazole 40 MG VIAL IVP SCH (06:09)
[2016-12-03 06:11] LABS: Alanine Aminotransferase 279 Units/L (0-55); Albumin 3.4 g/dL (3.5-5.0); Albumin/Globulin Ratio 0.9 (1.1-2.2); Alkaline Phosphatase 108 Units/L (38-126); Aspartate Amino Transferase 95 Units/L (5-34); BUN/Creatinine Ratio 4 (6-26); Bilirubin,Total 0.6 mg/dL (0.2-1.2); Calcium 8.9 mg/dL (8.6-10.8); Carbon Dioxide 27 mEq/L (19-29); Chloride 105 mEq/L (98-109); Globulin 3.6 g/dL (2.4-3.5); Glucose 99 mg/dL (70-99); Magnesium 2.4 mg/dL (1.6-2.6); Osmolality,Calculated 281 (280-300); Potassium 3.8 mEq/L (3.5-4.5); eGFR For African Americans > 60 (> 60); eGFR For Non-African Americans > 60 (> 60)
[2016-12-03 06:12] LABS: Blood Urea Nitrogen 3 mg/dL (7-20); Sodium 137 mEq/L (136-145)
[2016-12-03] MEDS ORDERED: Pantoprazole 40 MG VIAL IVP SCH (06:30)
[2016-12-03] MEDS ORDERED: 0.9 % Sodium Chloride 250 ML IVC PRN (08:13)
[2016-12-03] MEDS ORDERED: SUMAtriptan succinate 25 MG TABLET PO ONE (08:38)
--- NOTE | 2016-12-03 08:42 | Internal Med Progress Note ---
Date of Encounter: 12/03/16 Time of Encounter: 08:39 - Assessment and plan (1) Hypotension Current Visit: Yes Status: Acute Assessment and plan: unclear of patient's baseline BP Current BP: 109/65 will obtain orthostatic vitals continue IV fluids no clinical symptoms present at this time correlating with GI viral illness advance diet as tolerated will closely monitor BP awaiting bed for transfer out of the ICU Qualifiers: Hypotension type: unspecified hypotension type Qualified Code(s): I95.9 - Hypotension, unspecified (2) Headache Current Visit: Yes Status: Acute Assessment and plan: Reported history of migraines as per patient Will give one time dose of Sumatriptan 25mg PO Zofran 4mg IV q6h prn n/v Given CT head finding, will follow up brain MRI Qualifiers: Headache type: unspecified Headache chronicity pattern: unspecified pattern Intractability: not intractable Qualified Code(s): R51 - Headache (3) Tobacco abuse Current Visit: Yes Status: Acute Assessment and plan: smoking cessation counseling provided nicotine supplementation provided (4) DVT prophylaxis Current Visit: Yes Status: Acute Assessment and plan: early ambulation (5) Altered mental status Current Visit: Yes Status: Resolved Assessment and plan: Resolved mental status back to baseline Qualifiers: Altered mental status type: unspecified Qualified Code(s): R41.82 - Altered mental status, unspecified (6) Elevated transaminase level Current Visit: Yes Status: Acute Assessment and plan: Will obtain hepatitis serologies - Subjective Interval history: Patient seen and examined at bedside. Resting in bed and currently AAO x 3. States she has been feeling sick for the last few days with nausea and vomiting and believes she passed out yesterday which prompted her arrival to the ER. She reports of having history of migraine headaches for which she takes over the counter medications. Reports of feeling nauseous with a diffuse headache at this time but states she feels hungry. Reports of feeling dizzy for the last few days especially as she tries to get up. 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 Denies any drug ingestion prior to her arrival to the ER. Reports of being an everyday smoker and requests a nicotine patch. - Constitutional Vitals: Temp Pulse Resp BP Pulse Ox 98.3 F 65 20 87/58 95 12/03/16 07:15 12/03/16 08:00 12/03/16 08:00 12/03/16 08:00 12/03/16 08:00 General appearance: Present: A&O X 3, no acute distress, answers questions appropriately - Head Head exam: Present: atraumatic, normocephalic - Eye Eye exam: Present: EOMI, normal appearance, conjuntiva pink, sclera anicteric - Respiratory Respiratory exam: Present: CTAB. Absent: accessory muscle use, rales, rhonchi, wheezes - Cardiovascular Cardiovascular exam: Present: RRR, +S1, +S2. Absent: diastolic murmur, gallop, rubs, systolic murmur - GI/Abdominal GI/Abdominal exam: Present: normal bowel sounds, soft, no peritoneal signs. Absent: distended, tenderness - Extremities Exam Extremities exam: Present: warm, radial pulses palpable and symetrical. Absent : calf tenderness, cyanotic, pedal edema - Neurological Exam Neurological exam: Present: alert, oriented X3 - Psychiatric Psychiatric exam: Present: normal affect, normal mood Internal Medicine: Result - Labs CBC & Chem 7: 12/03/16 05:01 12/03/16 05:01 Labs: Short CBC 12/03/16 Range/Units 05:01 WBC 7.8 (4.3-11.1) K/mcL Hgb 13.8 (11.5-15.4) g/dL Hct 40.6 (35.3-44.9) % Plt Count 301 (140-400) K/mcL BMP 12/03/16 05:01 Sodium 137 D Potassium 3.8 Chloride 105 Carbon Dioxide 27 BUN 3 L Creatinine 0.70 Glucose 99 Calcium 8.9 Liver Function 12/03/16 Range/Units 05:01 Total Bilirubin 0.6 (0.2-1.2) mg/dL AST 95 H (5-34) Units/L ALT 279 H (0-55) Units/L Alkaline Phosphatase 108 (38-126) Units/L Albumin 3.4 L (3.5-5.0) g/dL - ABG Interpretation ABG results: PT/INR, D-dimer PT 12.1 Seconds (9.4-12.1) 12/02/16 18:29 Consult Discharge Plan - Plan Referrals: Benny Verduzco MD [Primary Care Provider] -
[2016-12-03] MEDS: Nicotine 14 MG PATCH.TD24 TD SCH (09:44)
[2016-12-03] MEDS: 0.9 % Sodium Chloride 1,000 ML IVC SCH ×2 (12:00→22:56)
[2016-12-03] MEDS: Acetaminophen 325 MG TABLET PO PRN ×2 (13:18→20:39)
[2016-12-04] MEDS: Acetaminophen 325 MG TABLET PO PRN ×2 (02:53→15:09)
[2016-12-04] MEDS: *HR* Heparin 5,000 UNIT/ML VIAL SQ SCH ×2 (05:46→17:29)
[2016-12-04] MEDS: Pantoprazole 40 MG VIAL IVP SCH (05:46)
--- NOTE | 2016-12-04 06:53 | Electrocardiograph Report ---
[address] [address] Test Date: 2016-12-02 Pat Name: Karan Cheng Department: 103 Room: 2N5 Gender: F Mandarin Speaking Nanny: DONNIE : 1985 Requested By: Miguel Perera Order Number: [id number] Reading MD: Yonatan Gilbert MD Measurements Intervals [place] Rate: 69 P: 78 SC: 188 QRS: 11 QRSD: 104 T: 47 QT: 406 QTc: 424 Interpretive Statements SINUS RHYTHM Poor R wave progression INCOMPLETE RBBB Electronically Signed On 12-04-2016 6:51:14 EDT by Yonatan Gilbert MD
[2016-12-04 06:59] LABS: Basophils % 0.4 %; Eosinophils # 0.1 K/mcL (0.0-0.6); Eosinophils % 1.6 %; Hematocrit 35.4 % (35.3-44.9); Immature Granulocytes % 0.5 % (0-4); Lymphocytes # 1.7 K/mcL (0.6-4.6); Lymphocytes % 29.3 %; Mean Corpuscular HGB Conc 31.6 g/dL (31.6-35.5); Mean Corpuscular Hemoglobin 28.2 pg (28.0-33.3); Mean Corpuscular Volume 89.2 fL (83.0-100.0); Monocytes # 0.5 K/mcL (0.0-1.3); Monocytes % 8.3 %; Neutrophils # 3.4 K/mcL (1.6-8.9); Platelet Count 245 K/mcL (140-400); Red Blood Count 3.97 M/mcL (3.82-4.97); Red Cell Distribution Width 13.1 % (11.5-14.5); Segmented Neutrophils % 59.9 %
[2016-12-04 07:07] LABS: BUN/Creatinine Ratio 11 (6-26); Blood Urea Nitrogen 7 mg/dL (7-20); Calcium 8.3 mg/dL (8.6-10.8); Carbon Dioxide 26 mEq/L (19-29); Chloride 111 mEq/L (98-109); Glucose 79 mg/dL (70-99); Magnesium 1.8 mg/dL (1.6-2.6); Osmolality,Calculated 281 (280-300); Phosphorous 3.7 mg/dL (2.3-4.7); Potassium 3.8 mEq/L (3.5-4.5); Sodium 137 mEq/L (136-145); eGFR For African Americans > 60 (> 60); eGFR For Non-African Americans > 60 (> 60)
[2016-12-04 07:21] LABS: Hemoglobin 11.2 g/dL (11.5-15.4)
--- NOTE | 2016-12-04 08:43 | Spinal Consult Note ---
Date of Encounter: 12/04/16 Time of Encounter: 08:41 Assessment and Plan (1) Cervical stenosis of spinal canal Current Visit: Yes Status: Acute Patient is lying comfortably in bed complaining of headache and pain down spine. Afebrile vital signs stable. She is grossly neurologically intact with regard to her bilateral upper and lower extremities. She has a positive Myron sign on the left. She has no clonus. MRI of the cervical spine reveals congenital stenosis and moderate severe stenosis at C3-4 and C4-5. There is signal changes within the cord at C4-5 consistent with myelomalacia. Impression: 1) cervical stenosis 2) cervical myelopathy 3) myelomalacia of the cervical cord Plan: Due to her risk for progressive neurologic deficit and her severe MRI findings I find it reasonable to consider surgery in the form of an anterior cervical decompression and fusion C3-C5. Risks benefits and possible complications were discussed. The patient would like to proceed. The patient will need to be medically cleared prior to surgical intervention and made nothing by mouth after midnight. (2) Cervical myelopathy Current Visit: Yes Status: Acute (3) Myelomalacia of cervical cord Current Visit: Yes Status: Chronic History of Present Illness Chief complaint: Headaches, shocklike sensations down spine, pain in upper and lower extremi HPI: Ms. Cheng is a 31 year old female Who was admitted to [facility] after some mental status changes, being combative, complaining of severe headaches as well as shocklike sensations in spine and some in the upper extremities. She had workup which included MRI of the brain and cervical spine MRI. We are asked to see regarding concerning MRI findings and symptomatology. She denies any fevers, chills, focal weakness, or recent drug use. Past Med Surg Social Fam HX - Past Medical History Medical history: asthma Psychiatric history: no psych history - Past Surgical History Surgical History: cholecystectomy (03/2003) - Social History Smoking Status: Current every day smoker Smokeless Tobacco Status: No Alcohol use: none Drug use: none Medications and Allergies Cetirizine HCl [Zyrtec] 10 mg PO DAILY 12/02/16 [History] Fluticasone Propionate Nasal [Flonase] 100 mcg NS DAILY 12/02/16 [History] Montelukast [Singulair] 10 mg PO QPM 12/02/16 [History] Sertraline [Zoloft] 50 mg PO DAILY 12/02/16 [History] Allergies NSAIDS (Non-Steroidal Anti-Inflamma Allergy (Verified 10/01/16 00:00) Dizziness Results - Labs Result Diagrams: 12/04/16 05:57 12/04/16 05:57 Labs: Abnormal lab results Hgb 11.2 g/dL (11.5-15.4) L D 12/04/16 05:57 VBG pCO2 38 mmHg (41-51) L 12/02/16 19:12 VBG pO2 59 mmHg (25-40) H 12/02/16 19:12 Chloride 111 mEq/L (98-109) H 12/04/16 05:57 POC Glucose 103 (58-89) H 12/02/16 20:54 Calcium 8.3 mg/dL (8.6-10.8) L 12/04/16 05:57 Ionized Calcium 1.06 mmol/L (1.15-1.35) L 12/02/16 21:46 AST 95 Units/L (5-34) H 12/03/16 05:01 ALT 279 Units/L (0-55) H 12/03/16 05:01 Albumin 3.4 g/dL (3.5-5.0) L 12/03/16 05:01 Globulin 3.6 g/dL (2.4-3.5) H 12/03/16 05:01 Albumin/Globulin Ratio 0.9 (1.1-2.2) L 12/03/16 05:01 Ur Specific [place] 1.006 (1.010-1.025) L 12/02/16 18:32 Urine Ketones 15 mg/dL (Negative) H 12/02/16 18:32 Salicylates < 5.0 mg/dL (15-30) L 12/02/16 18:29 Acetaminophen < 1.0 mcg/mL (10-30) L 12/02/16 18:29 H & H 12/04/16 Range/Units 05:57 Hgb 11.2 L D (11.5-15.4) g/dL Hct 35.4 (35.3-44.9) % All other labs normal. Consult Discharge Plan - Plan Referrals: Benny Verduzco MD [Primary Care Provider] -
[2016-12-04] MEDS: Nicotine 14 MG PATCH.TD24 TD SCH ×2 (09:05→17:32)
--- NOTE | 2016-12-04 11:50 | Internal Med Progress Note ---
Date of Encounter: 12/04/16 Time of Encounter: 11:49 - Assessment and plan (1) Hypotension Current Visit: Yes Status: Resolved Assessment and plan: BP within acceptable range will continue to monitor Qualifiers: Hypotension type: unspecified hypotension type Qualified Code(s): I95.9 - Hypotension, unspecified (2) Headache Current Visit: Yes Status: Acute Assessment and plan: Secondary to Cervical Stenosis of spinal canal Consultation with Dr. [place] appreciated patient ot undergo surgical cervial decompression in am NPO after midnight Qualifiers: Headache type: unspecified Headache chronicity pattern: unspecified pattern Intractability: not intractable Qualified Code(s): R51 - Headache (3) Tobacco abuse Current Visit: Yes Status: Acute Assessment and plan: smoking cessation counseling provided nicotine supplementation provided (4) DVT prophylaxis Current Visit: Yes Status: Acute Assessment and plan: early ambulation (5) Altered mental status Current Visit: Yes Status: Resolved Assessment and plan: Resolved mental status back to baseline Qualifiers: Altered mental status type: unspecified Qualified Code(s): R41.82 - Altered mental status, unspecified (6) Elevated transaminase level Current Visit: Yes Status: Acute Assessment and plan: Will obtain hepatitis serologies (7) Cervical stenosis of spinal canal Current Visit: Yes Status: Acute Assessment and plan: plan as listed above (8) Cervical myelopathy Current Visit: Yes Status: Acute - Subjective Interval history: Patient seen and examined at bedside. Resting in bed and reports of the chronic headache which is tolerable at this time. No other discomfort or distress reported. No overnight issues reported. - Constitutional Vitals: Temp Pulse Resp BP Pulse Ox 98.5 F 77 16 107/68 96 12/04/16 06:31 12/04/16 06:31 12/04/16 06:31 12/04/16 06:31 12/04/16 06:31 General appearance: Present: A&O X 3, no acute distress, answers questions appropriately - Head Head exam: Present: atraumatic, normocephalic - Eye Eye exam: Present: normal appearance, conjuntiva pink, sclera anicteric - Respiratory Respiratory exam: Present: CTAB. Absent: accessory muscle use, rales, rhonchi, wheezes - Cardiovascular Cardiovascular exam: Present: RRR, +S1, +S2. Absent: diastolic murmur, gallop, rubs, systolic murmur - GI/Abdominal GI/Abdominal exam: Present: normal bowel sounds, soft, no peritoneal signs. Absent: distended, tenderness - Extremities Exam Extremities exam: Present: warm, radial pulses palpable and symetrical. Absent : calf tenderness, cyanotic, pedal edema - Back Exam Back exam: Absent: vertebral tenderness - Neurological Exam Neurological exam: Present: alert, oriented X3 - Psychiatric Psychiatric exam: Present: normal affect, normal mood Internal Medicine: Result - Labs CBC & Chem 7: 12/04/16 05:57 12/04/16 05:57 Labs: Short CBC 12/04/16 Range/Units 05:57 WBC 5.7 (4.3-11.1) K/mcL Hgb 11.2 L D (11.5-15.4) g/dL Hct 35.4 (35.3-44.9) % Plt Count 245 (140-400) K/mcL Neutrophils # 3.4 (1.6-8.9) K/mcL BMP 12/04/16 05:57 Sodium 137 Potassium 3.8 Chloride 111 H Carbon Dioxide 26 BUN 7 Creatinine 0.64 Glucose 79 Calcium 8.3 L - ABG Interpretation ABG results: PT/INR, D-dimer PT 12.1 Seconds (9.4-12.1) 12/02/16 18:29 - Impressions Impressions Cervical Spine MRI 12/03/16 06:28 IMPRESSION: 1. Diffuse congenital spinal canal stenosis. 2. Superimposed degenerative spondylosis throughout the cervical spine further narrows the spinal canal at multiple levels, worst at C4-C5 and C6-C7 where there is severe spinal canal stenosis at these levels. Additional moderate spinal canal stenosis at C3-C4. 3. There is abnormal cervical spinal cord signal at C4-C5 likely representing myelomalacia. However, superimposed cord edema is not excluded. There is focal abnormal signal in the right lateral aspect of the spinal cord at C6-C7, consistent with myelomalacia. 4. Multilevel moderate and severe bilateral neural foraminal stenosis, as detailed above. The findings were sent to the Radiology [facility] at 11:04 am on 12/03/2016to be communicated to a licensed caregiver. D/ / 12/03/2016 11:34:03 Tito Ng MD / Tameka Avery Interpreting Provider: Tito Ng MD Cervical Spine X-Ray 12/03/16 13:40 IMPRESSION: 1. Reversal of the normal cervical lordosis which may be secondary to patient position or muscle spasm. 2. Mild degenerative changes at C4-5. D/ / Geronimo Perez MD / Geronimo Perez MD Interpreting Provider: Geronimo Perez MD Consult Discharge Plan - Plan Referrals: Tabby Sparks MD [Non-Partnered Physician] - 12/12/16 10:45 am
--- NOTE | 2016-12-04 18:38 | Anesthesia Evaluation PreOp ---
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 upper extremity numbness mainly based on head position/neck movement and right lower extremity with the most involvement); patient admitted 12-02-16 with combativeness (head imaging negative and drug screen negative) - that has since resolved) Other Medical History: Other (patient with hyponatremia on admission -- currently eunatremic) Anesthesia History: No Prior Anesthetic Complications, Past Anesthesia (tubal, cholecystectomy) Alcohol Use: none Drug use: none Medications and Allergies Cetirizine HCl [Zyrtec] 10 mg PO DAILY 12/02/16 [History] Fluticasone Propionate Nasal [Flonase] 100 mcg NS DAILY 12/02/16 [History] Montelukast [Singulair] 10 mg PO QPM 12/02/16 [History] Sertraline [Zoloft] 50 mg PO DAILY 12/02/16 [History] Allergies NSAIDS (Non-Steroidal Anti-Inflamma Allergy (Verified 10/01/16 00:00) Dizziness - Meds/Allergy Pre-op Review Medications Reviewed: Yes Allergies Reviewed: Yes Beta Blockers on Current Med List: No Anesthesia Results - Labs 12/04/16 05:57 12/04/16 05:57 - Imaging EKG: report reviewed, image reviewed (SR; poor R wave progression; incomplete RBBB) Anesthesia Exam Last Vital Signs Temp 99.0 F 12/04/16 18:33 Pulse 66 12/04/16 18:33 Resp 17 12/04/16 18:33 BP 119/73 12/04/16 18:33 Pulse Ox 99 12/04/16 18:33 Weight: 64 kg - HEENT Pupil (Motor): Pupils equal, EOMI Mallampati: II Teeth: Missing, Poor dentition Oral Opening: Greater than 3 - FIREFIGHTER LOC: Oriented FIREFIGHTER Motor: Deficit RLE FIREFIGHTER Sensory: Deficit: RUE, LUE, RLE, LLE - Cardiac Rhythm: Regular Murmur: None - Pulmonary Breath Sounds: bilateral Clear Respiratory Effort: Symmetrical Anesthesia Assess/Plan ASA Score: 3 Modified Willy Scale for Level of Consciousness: Cooperative, oriented, and tranquil Anesthetic Plan: General Monitoring Plan: Standard Monitors Recovery Plan: PACU
[2016-12-05] MEDS: Acetaminophen 325 MG TABLET PO PRN (00:09)
[2016-12-05 05:13] LABS: Basophils % 0.4 %; Eosinophils # 0.1 K/mcL (0.0-0.6); Eosinophils % 1.7 %; Hematocrit 38.1 % (35.3-44.9); Hemoglobin 12.3 g/dL (11.5-15.4); Immature Granulocytes % 0.9 % (0-4); Lymphocytes # 1.8 K/mcL (0.6-4.6); Lymphocytes % 26.3 %; Mean Corpuscular HGB Conc 32.3 g/dL (31.6-35.5); Mean Corpuscular Hemoglobin 28.5 pg (28.0-33.3); Mean Corpuscular Volume 88.2 fL (83.0-100.0); Mean Platelet Volume 9.5 fL (9.4-12.4); Monocytes # 0.5 K/mcL (0.0-1.3); Monocytes % 7.2 %; Neutrophils # 4.4 K/mcL (1.6-8.9); Platelet Count 247 K/mcL (140-400); Red Blood Count 4.32 M/mcL (3.82-4.97); Red Cell Distribution Width 13.1 % (11.5-14.5); Segmented Neutrophils % 63.5 %
[2016-12-05 05:32] LABS: Alanine Aminotransferase 194 Units/L (0-55); Albumin 3.2 g/dL (3.5-5.0); Albumin/Globulin Ratio 0.9 (1.1-2.2); Alkaline Phosphatase 87 Units/L (38-126); Aspartate Amino Transferase 72 Units/L (5-34); BUN/Creatinine Ratio 16 (6-26); Bilirubin,Total 0.4 mg/dL (0.2-1.2); Blood Urea Nitrogen 12 mg/dL (7-20); Calcium 9.1 mg/dL (8.6-10.8); Carbon Dioxide 26 mEq/L (19-29); Chloride 106 mEq/L (98-109); Globulin 3.4 g/dL (2.4-3.5); Glucose 83 mg/dL (70-99); Magnesium 1.7 mg/dL (1.6-2.6); Osmolality,Calculated 285 (280-300); Phosphorous 5.3 mg/dL (2.3-4.7); Potassium 3.7 mEq/L (3.5-4.5); Sodium 138 mEq/L (136-145); Total Protein 6.6 g/dL (6.0-8.3); eGFR For African Americans > 60 (> 60); eGFR For Non-African Americans > 60 (> 60)
[2016-12-05] MEDS: *HR* Heparin 5,000 UNIT/ML VIAL SQ SCH (05:41)
[2016-12-05] MEDS: Pantoprazole 40 MG VIAL IVP SCH (05:41)
[2016-12-05] MEDS: Nicotine 14 MG PATCH.TD24 TD SCH (09:58)
[2016-12-05 11:18] LABS: Hepatitis A Antibody IgM Nonreactive (Nonreactive); Hepatitis B Core IgM Nonreactive (Nonreactive); Hepatitis B Surface Antigen Nonreactive (Nonreactive)
[2016-12-05 11:23] LABS: Hepatitis C Virus Antibody Reactive (Nonreactive)
--- NOTE | 2016-12-05 11:28 | Internal Med Progress Note ---
Date of Encounter: 12/05/16 Time of Encounter: 11:26 - Assessment and plan (1) Hypotension Current Visit: Yes Status: Resolved Assessment and plan: BP within acceptable range will continue to monitor Qualifiers: Hypotension type: unspecified hypotension type Qualified Code(s): I95.9 - Hypotension, unspecified (2) Headache Current Visit: Yes Status: Acute Assessment and plan: Secondary to Cervical Stenosis of spinal canal Consultation with Dr. Oshea appreciated patient to undergo surgical cervial decompression today (12/05/16). Post-op care as per Dr. Oshea Qualifiers: Headache type: unspecified Headache chronicity pattern: unspecified pattern Intractability: not intractable Qualified Code(s): R51 - Headache (3) Tobacco abuse Current Visit: Yes Status: Acute Assessment and plan: smoking cessation counseling provided nicotine supplementation provided (4) DVT prophylaxis Current Visit: Yes Status: Acute Assessment and plan: early ambulation (5) Altered mental status Current Visit: Yes Status: Resolved Qualifiers: Altered mental status type: unspecified Qualified Code(s): R41.82 - Altered mental status, unspecified (6) Elevated transaminase level Current Visit: Yes Status: Acute Assessment and plan: Hepatitis C reactive pt will need outpatient follow up with GI for further management (7) Cervical stenosis of spinal canal Current Visit: Yes Status: Acute Assessment and plan: plan as listed above (8) Cervical myelopathy Current Visit: Yes Status: Acute - Subjective Interval history: Patient seen and examined with family present at bedside. Resting in bed and denies any discomfort at this time. Schedule for C-spine surgery later today. No overnight events reported. - Constitutional Vitals: Temp Pulse Resp BP Pulse Ox 97.4 F L 65 16 120/70 97 12/05/16 08:21 12/05/16 08:21 12/05/16 08:21 12/05/16 08:21 12/05/16 08:21 General appearance: Present: A&O X 3, no acute distress, answers questions appropriately - Head Head exam: Present: atraumatic, normocephalic - Eye Eye exam: Present: normal appearance, conjuntiva pink, sclera anicteric - Respiratory Respiratory exam: Present: CTAB. Absent: accessory muscle use, rales, rhonchi, wheezes - Cardiovascular Cardiovascular exam: Present: RRR, +S1, +S2. Absent: diastolic murmur, gallop, rubs, systolic murmur - GI/Abdominal GI/Abdominal exam: Present: normal bowel sounds, soft, no peritoneal signs. Absent: distended, tenderness - Extremities Exam Extremities exam: Present: warm, radial pulses palpable and symetrical. Absent : calf tenderness, cyanotic, pedal edema - Neurological Exam Neurological exam: Present: alert, oriented X3 - Psychiatric Psychiatric exam: Present: normal affect, normal mood Internal Medicine: Result - Labs CBC & Chem 7: 12/05/16 05:05 12/05/16 05:05 Labs: Short CBC 12/05/16 Range/Units 05:05 WBC 7.0 (4.3-11.1) K/mcL Hgb 12.3 (11.5-15.4) g/dL Hct 38.1 (35.3-44.9) % Plt Count 247 (140-400) K/mcL Neutrophils # 4.4 (1.6-8.9) K/mcL BMP 12/05/16 05:05 Sodium 138 Potassium 3.7 Chloride 106 Carbon Dioxide 26 BUN 12 Creatinine 0.74 Glucose 83 Calcium 9.1 Liver Function 12/05/16 Range/Units 05:05 Total Bilirubin 0.4 (0.2-1.2) mg/dL AST 72 H (5-34) Units/L ALT 194 H (0-55) Units/L Alkaline Phosphatase 87 (38-126) Units/L Albumin 3.2 L (3.5-5.0) g/dL - ABG Interpretation ABG results: PT/INR, D-dimer PT 12.1 Seconds (9.4-12.1) 12/02/16 18:29 - Impressions Impressions Brain MRI 12/03/16 08:46 IMPRESSION: No acute brain parenchymal abnormality. D/ / 12/03/2016 11:21:50 Vianey Carney MD / [email or web address] Interpreting Provider: Vianey Carney MD Consult Discharge Plan - Plan Referrals: Tabby Sparks MD [Non-Partnered Physician] - 12/12/16 10:45 am
[2016-12-05] MEDS ORDERED: *HR* Midazolam HCl 5 MG/5 ML VIAL IVP ONE (14:47)
[2016-12-05] MEDS ORDERED: *HR* Succinylcholine 200 MG/10 ML VIAL IVP ONE (14:47)
[2016-12-05] MEDS ORDERED: *HR* Propofol 200 MG/20 ML VIAL IVP ONE ×3 (14:47→16:57)
[2016-12-05] MEDS ORDERED: *HR* Remifentanil 2 MG VIAL IVP ONE (14:47)
[2016-12-05] MEDS ORDERED: *HR* Phenylephrine 10 MG/ML VIAL ONE (14:47)
[2016-12-05] MEDS ORDERED: Ondansetron 4 MG/2 ML VIAL ONE (14:47)
[2016-12-05] MEDS ORDERED: Lidocaine -MPF 4% 5 ML AMPUL ONE (14:47)
[2016-12-05] MEDS ORDERED: *HR* FentaNYL (PF) 100 MCG/2 ML VIAL ONE (14:47)
[2016-12-05] MEDS ORDERED: Dexamethasone 4 MG/ML VIAL ONE (14:47)
[2016-12-05] MEDS ORDERED: Propofol 500 MG/50 ML INFUS..BTL ONE ×2 (14:47→15:25)
[2016-12-05] MEDS ORDERED: Lidocaine -MPF 2% 2 ML VIAL ONE (14:47)
[2016-12-05] MEDS ORDERED: Ondansetron 4 MG/2 ML VIAL IVP ONE (15:41)
[2016-12-05] MEDS ORDERED: *HR* Promethazine 25 MG/ML VIAL IVP PRN (15:41)
[2016-12-05] MEDS ORDERED: *HR* HYDROmorphone (PF) 1 MG/ML SYRINGE IVP PRN (15:41)
--- NOTE | 2016-12-05 16:40 | Orthopedics Progress Note ---
Date of Encounter: 12/05/16 Time of Encounter: 13:00 - Assessment and Plan (1) Cervical myelopathy Current Visit: Yes Status: Acute (2) Cervical stenosis of spinal canal Current Visit: Yes Status: Acute Subjective Principal diagnosis: cervical stenosis, cervical myelopathy Interval history: Patient seen at bedside. Patient awaiting transport to OR for scheduled surgery. Patient alert and oriented, conversive with appropriate eye contact. Patient consented after explaining risks and benefits. Patient denies further questions or concerns. Plan for surgery today as scheduled with Dr. Oshea ACDF C3-5. Objective Vital signs: Vital Signs Temp Pulse Resp BP Pulse Ox 12/05/16 12:20 98.4 F 69 20 114/67 114 12/05/16 08:21 97.4 F L 65 16 120/70 97 12/05/16 04:28 98.8 F 72 16 109/70 96 12/05/16 00:13 98.4 F 71 17 123/72 96 12/04/16 18:33 99.0 F 66 17 119/73 99 Intake and Output 12/05/16 12/05/16 12/05/16 07:59 15:59 23:59 Intake Total 0 / 0 Balance 0 / 0 Intake: Oral 0 / 0 Other: # Voids 2 Weight 64.7 kg Patient Weight 12/05/16 23:59 Weight 64.7 kg - Labs CBC & BMP: 12/05/16 05:05 12/05/16 05:05 Labs: Abnormal lab results VBG pCO2 38 mmHg (41-51) L 12/02/16 19:12 VBG pO2 59 mmHg (25-40) H 12/02/16 19:12 POC Glucose 103 (58-89) H 12/02/16 20:54 Ionized Calcium 1.06 mmol/L (1.15-1.35) L 12/02/16 21:46 Phosphorus 5.3 mg/dL (2.3-4.7) H 12/05/16 05:05 AST 72 Units/L (5-34) H 12/05/16 05:05 ALT 194 Units/L (0-55) H 12/05/16 05:05 Albumin 3.2 g/dL (3.5-5.0) L 12/05/16 05:05 Albumin/Globulin Ratio 0.9 (1.1-2.2) L 12/05/16 05:05 Ur Specific Alpha 1.006 (1.010-1.025) L 12/02/16 18:32 Urine Ketones 15 mg/dL (Negative) H 12/02/16 18:32 Salicylates < 5.0 mg/dL (15-30) L 12/02/16 18:29 Acetaminophen < 1.0 mcg/mL (10-30) L 12/02/16 18:29 Hepatitis C Ab Screen Reactive (Nonreactive) H 12/04/16 05:57 Consult Discharge Plan - Plan Referrals: Tabby Sparks MD [Non-Partnered Physician] - 12/12/16 10:45 am
[2016-12-05] MEDS ORDERED: *HR* HYDROmorphone 2 MG/ML SYRINGE ONE ×2 (16:42→17:16)
--- NOTE | 2016-12-05 17:08 | Orthopedic Operative Note ---
Date of procedure: 12/05/16 Pre-op diagnosis: Cervical stenosis, cervical myelopathy Post-op diagnosis: same Operation/Findings: Anterior cervical decompression and fusion C3- C5: :The patient was brought to the operating room and placed supine on the operating room table. Successful general endotracheal anesthesia intubation was performed. Neurophysiologic monitoring personnel placed leads on the upper and lower extremities as well as the cranium for EMG monitoring purposes. Appropriate baseline potentials were noted by the neurophysiologic monitoring staff. Theodore catheter was placed prior to positioning. Compression boots and stockings were placed for deep vein thrombosis prophylaxis. Padding was also placed all bony prominences including the ulnar nerve near the medial epicondyles of the elbows were appropriately padded. Mild traction was placed on the bilateral shoulders and taped into place. Preoperative antibiotics were administered. The area from the mandible bilaterally to the upper thoraces was prepped and draped in the usual sterile fashion. A transverse incision was made 1 cm proximal to the level of the cricoid cartilage which is approximately 3 cm in length and extended from the midline of the cervical spine laterally towards the sternocleidomastoid muscle on the left. We then performed standard medial approach to the carotid sheath. Sponges were used to tease the fascial medial to the sternocleidomastoid muscle while carefully controlling and palpating the carotid artery. Using careful dissection we were able to get to the level of the anterior vertebral bodies and longus coli muscles. The spinal needle was placed at the appropriate T4-5 level, and intraoperative radiograph was obtained which was a cervical spine lateral radiograph. The needle and radiograph confirmed we were at the correct E45 operative level. We further exposed this level by using Bovie cautery under the medial edge of the longus colli muscles to allow them to be retracted approximately 2 mm laterally on each side. An 11 blade was used to perform anterior discectomy at the appropriate level after an initial annulotomy of the anterior longitudinal ligament and annulus was performed. Further disc material was removed with pituitary Rongeurs. Subsequently, Synthes pins were placed at the C4 and C5 vertebral bodies respectively to provide distraction. We then used a Trimline cervical retractor which was placed in both medial and lateral as well as inferior superior direction to allow full visualization of the appropriate C4- 5 disc and he 4 and C5 vertebral bodies. The Leica microscope was brought to the field and the remainder of the procedure was performed under the guidance of this microscope. Using pituitary rongeurs and small curettes, various micro- instruments, a full discectomy was performed at the appropriate C4-5 level. The posterior longitudinal ligament was encountered and appeared partially calcified. A portion of this ligament was removed. After complete and thorough discectomy and removal of spondylitic material was performed the endplates of the C4 and C5 vertebral bodies were prepared with a bur until allow bleeding of cancellous bone. A 7mm trial graft was evaluated and appeared to fit quite well within the excised C4-5 disc space. A cortico- cancellous allograft of 7 mm was utilized, carefully tapped into place within the excised disc space with the aid of a bone tamp. It was seated approximately 2 mm from the anterior edge of the cortex of the adjacent vertebral bodies. We then turned our attention to the C3-4 level where a similar series of procedures was performed including discectomy, removal of spondylitic material, end plate preparation, and trial grafting. A 7 mm trial fit well within the C3-4 disc space. A 7mm allograft was then placed at C3-4. A cervical plate was then placed on the anterior aspect of the C3, C4, and C5 vertebral bodies. The plate was placed in the midline position after drilling six 13 mm self tapping screws and inserting them. They were locked in place using standard Venture plate maneuvers. At this point a lateral radiograph of the cervical spine was obtained and showed satisfactory position of the graft and plate. The wound was copiously irrigated and bleeders encountered were cauterized using Bovie cautery. Platysma was closed with interrupted 2-0 Vicryl sutures. Running 3-0 Monocryl suture was used for skin closure. Sterile dressing was placed over the neck wound. A cervical collar was placed. The patient was transferred to a hospital bed and extubated. The patient was noted to be fully motor and sensory intact in the recovery room at the end of the procedure. The medications. All sponge instrument and needle counts were correct at the end of the procedure. Surgeon: Ted Oshea Jr Estimated blood loss (cc): 100 Condition: stable Disposition: PACU
[2016-12-05] MEDS ORDERED: Ondansetron 4 MG/2 ML VIAL IVP PRN (18:06)
[2016-12-05] MEDS ORDERED: Ringers Solution, Lactated 1,000 ML IVC SCH (18:06)
[2016-12-05] MEDS ORDERED: Naloxone 0.4 MG/ML INJ IVP PRN (18:06)
--- NOTE | 2016-12-05 18:07 | Anesthesia Evaluation Post Op ---
Date of Encounter: 12/05/16 Time of Encounter: 18:06 - Vital Signs Vital Signs: Vital Signs/O2 Sat, Most Current Temp Pulse Resp BP Pulse Ox 98.6 F 97 16 120/87 95 12/05/16 17:50 12/05/16 17:50 12/05/16 17:50 12/05/16 17:50 12/05/16 17:50 - Lungs Lungs: Clear Ascult./Percussion - Airway Airway: Non-obstructed - Cardiovascular Regular Rate - Mental Status Mental Status: Alert & Oriented, Answers Appropriately - Pain Pain Scale: 8 Pain Scale used: Numeric (1 - 10) - Nausea Vomiting Nausea Vomiting: Not Present - Hydration Hydration: Ice chips, Has not voided - Discharge PostOp Status: Transfer Patient to floor
[2016-12-05] MEDS: *HR* OxyCODONE Immed Rel 5 MG TABLET PO PRN (18:46)
[2016-12-05] MEDS: *HR* Morphine 2 MG/ML SYRINGE IVP PRN (21:56)
[2016-12-06] MEDS: ceFAZolin 2,000 MG in D5% in Water 100 ML IVPB SCH ×2 (00:10→07:59)
[2016-12-06] MEDS: *HR* OxyCODONE Immed Rel 5 MG TABLET PO PRN ×3 (02:12→19:51)
[2016-12-06] MEDS: *HR* Morphine 2 MG/ML SYRINGE IVP PRN ×3 (06:25→23:25)
[2016-12-06 08:26] LABS: Basophils % 0.2 %; Eosinophils % 0.2 %; Hematocrit 35.4 % (35.3-44.9); Hemoglobin 11.5 g/dL (11.5-15.4); Immature Granulocytes % 0.4 % (0-4); Lymphocytes # 1.6 K/mcL (0.6-4.6); Lymphocytes % 12.8 %; Mean Corpuscular HGB Conc 32.5 g/dL (31.6-35.5); Mean Corpuscular Hemoglobin 28.7 pg (28.0-33.3); Mean Corpuscular Volume 88.3 fL (83.0-100.0); Mean Platelet Volume 9.4 fL (9.4-12.4); Monocytes # 0.7 K/mcL (0.0-1.3); Monocytes % 5.3 %; Neutrophils # 9.9 K/mcL (1.6-8.9); Platelet Count 262 K/mcL (140-400); Red Blood Count 4.01 M/mcL (3.82-4.97); Red Cell Distribution Width 13.1 % (11.5-14.5); Segmented Neutrophils % 81.1 %
--- NOTE | 2016-12-06 08:38 | Internal Med Progress Note ---
Date of Encounter: 12/06/16 Time of Encounter: 08:26 - Assessment and plan (1) Cervical stenosis of spinal canal Current Visit: Yes Status: Acute Assessment and plan: POD #1 anterior cervical decompression and fusion C3-C5 Will follow up Post op care as per Dr. Oshea (2) Hypotension Current Visit: Yes Status: Resolved Assessment and plan: BP within acceptable range will continue to monitor Qualifiers: Hypotension type: unspecified hypotension type Qualified Code(s): I95.9 - Hypotension, unspecified (3) Headache Current Visit: Yes Status: Resolved Assessment and plan: Secondary to Cervical Stenosis of spinal canal Consultation with Dr. Oshea appreciated POD #1 anterior cervical decompression and fusion C3-C5 Will follow up Post op care as per Dr. Oshea Qualifiers: Headache type: unspecified Headache chronicity pattern: unspecified pattern Intractability: not intractable Qualified Code(s): R51 - Headache (4) Tobacco abuse Current Visit: Yes Status: Acute Assessment and plan: smoking cessation counseling provided nicotine supplementation provided (5) DVT prophylaxis Current Visit: Yes Status: Acute Assessment and plan: early ambulation SCD (6) Altered mental status Current Visit: Yes Status: Resolved Assessment and plan: Resolved mental status back to baseline Qualifiers: Altered mental status type: unspecified Qualified Code(s): R41.82 - Altered mental status, unspecified (7) Elevated transaminase level Current Visit: Yes Status: Acute Assessment and plan: Hepatitis C reactive pt will need outpatient follow up with GI for further management (8) Cervical myelopathy Current Visit: Yes Status: Acute - Subjective Interval history: Patient seen and examined at bedside. Pt is POD #1 anterior cervical decompression and fusion C3-C5. she is resting in bed and reports of soreness in her neck but denies any other complains at this time. States the pain is adequately controlled at this time. No overnight issues were reported. - Constitutional Vitals: Temp Pulse Resp BP Pulse Ox 97.8 F 78 16 118/65 95 12/06/16 06:39 12/06/16 06:39 12/06/16 06:39 12/06/16 06:39 12/06/16 06:39 General appearance: Present: A&O X 3, no acute distress, answers questions appropriately - Head Head exam: Present: atraumatic, normocephalic - Eye Eye exam: Present: conjuntiva pink, sclera anicteric - Neck Additional comments: midline dressing intact - Respiratory Respiratory exam: Present: CTAB. Absent: accessory muscle use, rales, rhonchi, wheezes - Cardiovascular Cardiovascular exam: Present: RRR, +S1, +S2. Absent: diastolic murmur, gallop, rubs, systolic murmur - GI/Abdominal GI/Abdominal exam: Present: normal bowel sounds, soft, no peritoneal signs. Absent: distended, tenderness - Extremities Exam Extremities exam: Present: warm, radial pulses palpable and symetrical. Absent : calf tenderness, cyanotic, pedal edema - Neurological Exam Neurological exam: Present: alert, oriented X3 - Psychiatric Psychiatric exam: Present: normal affect, normal mood Internal Medicine: Result - Labs CBC & Chem 7: 12/05/16 05:05 12/05/16 05:05 - ABG Interpretation ABG results: PT/INR, D-dimer PT 12.1 Seconds (9.4-12.1) 12/02/16 18:29 - Impressions Impressions Cervical Spine X-Ray 12/05/16 00:00 IMPRESSION: Intraoperative image as described D/ / Toni Vazquez MD / Toni Vazquez MD Interpreting Provider: Toni Vazquez MD Cervical Spine X-Ray 12/05/16 00:00 IMPRESSION: No immediate complications status post anterior cervical discectomy and fusion from C3 through C5. D/ / Dwight Marquez MD / Dwight Marquez MD Interpreting Provider: Dwight Marquez MD Cervical Spine X-Ray 12/05/16 14:56 IMPRESSION: Probe is at the C5-6 level. D/ / Nikko Lauren MD / Nikko Lauren MD Interpreting Provider: Nikko Lauren MD Cervical Spine X-Ray 12/05/16 15:05 IMPRESSION: Intraoperative image as described. D/ : / 12/05/2016 15:28:23 Toni Vazquez MD / [email or web address] Interpreting Provider: Toni Vazquez MD - VTE Documentation of Mechanical Device: Intermittent pneumatic compression device Consult Discharge Plan - Plan Referrals: Tabby Sparks MD [Non-Partnered Physician] - 12/12/16 10:45 am
[2016-12-06 08:39] LABS: BUN/Creatinine Ratio 8 (6-26); Calcium 8.9 mg/dL (8.6-10.8); Carbon Dioxide 28 mEq/L (19-29); Chloride 107 mEq/L (98-109); Glucose 83 mg/dL (70-99); Magnesium 1.7 mg/dL (1.6-2.6); Osmolality,Calculated 284 (280-300); Phosphorous 3.9 mg/dL (2.3-4.7); Sodium 139 mEq/L (136-145); eGFR For African Americans > 60 (> 60); eGFR For Non-African Americans > 60 (> 60)
[2016-12-06 08:40] LABS: Blood Urea Nitrogen 5 mg/dL (7-20)
[2016-12-06] MEDS ORDERED: Fluticasone Propionate Nasal 50 MCG/SPRAY BOTTLE NS SCH (09:00)
[2016-12-06] MEDS ORDERED: Loratadine 10 MG TABLET PO SCH (09:00)
--- NOTE | 2016-12-06 22:26 | Spine Progress Note ---
Date of Encounter: 12/06/16 Time of Encounter: 22:25 - Assessment and Plan (1) Cervical stenosis of spinal canal Current Visit: Yes Status: Acute Patient is lying comfortably in bed complaining of headache and pain down spine. Afebrile vital signs stable. She is grossly neurologically intact with regard to her bilateral upper and lower extremities. She has a positive Myron sign on the left. She has no clonus. MRI of the cervical spine reveals congenital stenosis and moderate severe stenosis at C3-4 and C4-5. There is signal changes within the cord at C4-5 consistent with myelomalacia. Impression: 1) cervical stenosis 2) cervical myelopathy 3) myelomalacia of the cervical cord Plan: Due to her risk for progressive neurologic deficit and her severe MRI findings I find it reasonable to consider surgery in the form of an anterior cervical decompression and fusion C3-C5. Risks benefits and possible complications were discussed. The patient would like to proceed. The patient will need to be medically cleared prior to surgical intervention and made nothing by mouth after midnight. (2) Cervical myelopathy Current Visit: Yes Status: Acute (3) Myelomalacia of cervical cord Current Visit: Yes Status: Chronic Subjective Principal diagnosis: cervical stenosis, cervical myelopathy Interval history: The patient is without complaints. Afebrile vital signs are stable. Incision is clean dry and intact. Neurovascularly intact with regard to bilateral lower extremities. Fires all upper and lower extremity motor groups. Assessment : stable. Plan mobilize ,continue analgesics, discharge planning. From my standpoint she may be discharged tomorrow if pain under reasonable control and no complications. Follow-up in 2 weeks. Objective Vital signs: Vital Signs Temp Pulse Resp BP Pulse Ox 12/06/16 19:56 98.1 F 79 18 124/72 96 12/06/16 14:58 98.5 F 74 16 114/68 98 12/06/16 11:04 98.4 F 69 16 110/74 97 12/06/16 06:39 97.8 F 78 16 118/65 95 12/06/16 04:19 97.7 F 73 18 113/68 99 12/06/16 00:04 97.8 F 72 18 114/65 96 Intake and Output 12/06/16 12/06/16 12/06/16 07:59 15:59 23:59 Intake Total 820 / 820 550 / 550 240 / 240 Output Total 400 / 400 Balance 820 / 820 150 / 150 240 / 240 Intake: IV Fluids 100 / 100 Ancef 2,000 MG In 100 / 100 Dextrose 5% 100 ML @ 200 mls/hr IVPB Q8HR [facility] Rx#: [id number] Oral 720 / 720 550 / 550 240 / 240 Output: Urine 400 / 400 Other: Meal Lunch Percent of Meal Consumed 75% - Labs CBC & BMP: 12/06/16 08:16 12/06/16 08:16 Labs: Abnormal lab results WBC 12.2 K/mcL (4.3-11.1) H D 12/06/16 08:16 Neutrophils # 9.9 K/mcL (1.6-8.9) H 12/06/16 08:16 VBG pCO2 38 mmHg (41-51) L 12/02/16 19:12 VBG pO2 59 mmHg (25-40) H 12/02/16 19:12 BUN 5 mg/dL (7-20) L 12/06/16 08:16 POC Glucose 103 (58-89) H 12/02/16 20:54 Ionized Calcium 1.06 mmol/L (1.15-1.35) L 12/02/16 21:46 AST 72 Units/L (5-34) H 12/05/16 05:05 ALT 194 Units/L (0-55) H 12/05/16 05:05 Albumin 3.2 g/dL (3.5-5.0) L 12/05/16 05:05 Albumin/Globulin Ratio 0.9 (1.1-2.2) L 12/05/16 05:05 Ur Specific [place] 1.006 (1.010-1.025) L 12/02/16 18:32 Urine Ketones 15 mg/dL (Negative) H 12/02/16 18:32 Salicylates < 5.0 mg/dL (15-30) L 12/02/16 18:29 Acetaminophen < 1.0 mcg/mL (10-30) L 12/02/16 18:29 Hepatitis C Ab Screen Reactive (Nonreactive) H 12/04/16 05:57 Consult Discharge Plan - Plan Referrals: Tabby Sparks MD [Non-Partnered Physician] - 12/12/16 10:45 am
[2016-12-07 01:27] LABS: Basophils % 0.2 %; Eosinophils # 0.1 K/mcL (0.0-0.6); Eosinophils % 0.9 %; Hematocrit 34.3 % (35.3-44.9); Hemoglobin 11.3 g/dL (11.5-15.4); Immature Granulocytes % 0.4 % (0-4); Lymphocytes % 20.8 %; Mean Corpuscular HGB Conc 32.9 g/dL (31.6-35.5); Mean Corpuscular Hemoglobin 29.5 pg (28.0-33.3); Mean Corpuscular Volume 89.6 fL (83.0-100.0); Mean Platelet Volume 9.6 fL (9.4-12.4); Monocytes # 0.5 K/mcL (0.0-1.3); Monocytes % 5.4 %; Neutrophils # 6.9 K/mcL (1.6-8.9); Platelet Count 250 K/mcL (140-400); Red Blood Count 3.83 M/mcL (3.82-4.97); Red Cell Distribution Width 13.5 % (11.5-14.5); Segmented Neutrophils % 72.3 %
[2016-12-07 01:42] LABS: BUN/Creatinine Ratio 10 (6-26); Blood Urea Nitrogen 7 mg/dL (7-20); Calcium 9.1 mg/dL (8.6-10.8); Carbon Dioxide 31 mEq/L (19-29); Chloride 105 mEq/L (98-109); Glucose 92 mg/dL (70-99); Magnesium 1.8 mg/dL (1.6-2.6); Osmolality,Calculated 286 (280-300); Phosphorous 4.2 mg/dL (2.3-4.7); Potassium 3.9 mEq/L (3.5-4.5); Sodium 139 mEq/L (136-145); eGFR For African Americans > 60 (> 60); eGFR For Non-African Americans > 60 (> 60)
[2016-12-07] MEDS: *HR* OxyCODONE Immed Rel 5 MG TABLET PO PRN ×4 (05:17→23:44)
--- NOTE | 2016-12-07 09:04 | Internal Med Progress Note ---
Date of Encounter: 12/07/16 Time of Encounter: 09:02 - Assessment and plan (1) Cervical stenosis of spinal canal Current Visit: Yes Status: Acute Assessment and plan: POD #2 anterior cervical decompression and fusion C3-C5 Will follow up Post op care as per Dr. Oshea (2) Hypotension Current Visit: Yes Status: Resolved Assessment and plan: BP within acceptable range will continue to monitor Qualifiers: Hypotension type: unspecified hypotension type Qualified Code(s): I95.9 - Hypotension, unspecified (3) Headache Current Visit: Yes Status: Resolved Assessment and plan: Secondary to Cervical Stenosis of spinal canal Consultation with Dr. Oshea appreciated POD #2 anterior cervical decompression and fusion C3-C5 Will follow up Post op care as per Dr. Oshea Qualifiers: Headache type: unspecified Headache chronicity pattern: unspecified pattern Intractability: not intractable Qualified Code(s): R51 - Headache (4) Tobacco abuse Current Visit: Yes Status: Acute Assessment and plan: smoking cessation counseling provided nicotine supplementation provided (5) DVT prophylaxis Current Visit: Yes Status: Acute Assessment and plan: early ambulation SCD (6) Altered mental status Current Visit: Yes Status: Resolved Assessment and plan: Resolved mental status back to baseline Qualifiers: Altered mental status type: unspecified Qualified Code(s): R41.82 - Altered mental status, unspecified (7) Elevated transaminase level Current Visit: Yes Status: Acute Assessment and plan: Hepatitis C reactive pt will need outpatient follow up with GI for further management (8) Cervical myelopathy Current Visit: Yes Status: Acute - Subjective Interval history: Patient seen and examined at bedside. Pt is POD #2 anterior cervical decompression and fusion C3-C5. Resting in bed and reports complete resolution of her headache. States that she has to wear the C-spine collar with ambulation. No overnight issues reported Likely d/c in am after patient receives the C-spine collar - Constitutional Vitals: Temp Pulse Resp BP Pulse Ox 98.3 F 76 18 113/62 98 12/07/16 06:34 12/07/16 06:34 12/07/16 06:34 12/07/16 06:34 12/07/16 06:34 General appearance: Present: A&O X 3, no acute distress, answers questions appropriately - Head Head exam: Present: atraumatic, normocephalic - Eye Eye exam: Present: normal appearance, conjuntiva pink, sclera anicteric - Neck Additional comments: midline dressing intact - Respiratory Respiratory exam: Present: CTAB. Absent: accessory muscle use, rales, rhonchi, wheezes - Cardiovascular Cardiovascular exam: Present: RRR, +S1, +S2. Absent: diastolic murmur, gallop, rubs, systolic murmur - GI/Abdominal GI/Abdominal exam: Present: normal bowel sounds, soft, no peritoneal signs. Absent: distended, tenderness - Extremities Exam Extremities exam: Present: warm, radial pulses palpable and symetrical. Absent : calf tenderness, cyanotic, pedal edema - Neurological Exam Neurological exam: Present: alert, oriented X3 - Psychiatric Psychiatric exam: Present: normal affect, normal mood Internal Medicine: Result - Labs CBC & Chem 7: 12/07/16 01:19 12/07/16 01:19 Labs: Short CBC 12/07/16 Range/Units 01:19 WBC 9.6 (4.3-11.1) K/mcL Hgb 11.3 L (11.5-15.4) g/dL Hct 34.3 L (35.3-44.9) % Plt Count 250 (140-400) K/mcL Neutrophils # 6.9 (1.6-8.9) K/mcL BMP 12/07/16 01:19 Sodium 139 Potassium 3.9 Chloride 105 Carbon Dioxide 31 H BUN 7 Creatinine 0.67 Glucose 92 Calcium 9.1 - ABG Interpretation ABG results: PT/INR, D-dimer PT 12.1 Seconds (9.4-12.1) 12/02/16 18:29 - Impressions Impressions Cervical Spine X-Ray 12/06/16 08:09 IMPRESSION: Postsurgical changes from C3 through C5 discectomy and anterior fixation. D/ / 12/06/2016 14:05:16 Queenie Maynard MD / earnold Interpreting Provider: Queenie Maynard MD - VTE Documentation of Mechanical Device: Intermittent pneumatic compression device Consult Discharge Plan - Plan Referrals: Tabby Sparks MD [Non-Partnered Physician] - 12/12/16 10:45 am
[2016-12-08 01:14] LABS: Basophils % 0.3 %; Eosinophils # 0.1 K/mcL (0.0-0.6); Eosinophils % 1.2 %; Hematocrit 38.7 % (35.3-44.9); Hemoglobin 12.2 g/dL (11.5-15.4); Immature Granulocytes % 0.5 % (0-4); Lymphocytes # 1.7 K/mcL (0.6-4.6); Lymphocytes % 22.3 %; Mean Corpuscular HGB Conc 31.5 g/dL (31.6-35.5); Mean Corpuscular Hemoglobin 28.1 pg (28.0-33.3); Mean Corpuscular Volume 89.2 fL (83.0-100.0); Mean Platelet Volume 9.2 fL (9.4-12.4); Monocytes # 0.6 K/mcL (0.0-1.3); Neutrophils # 5.2 K/mcL (1.6-8.9); Platelet Count 265 K/mcL (140-400); Red Blood Count 4.34 M/mcL (3.82-4.97); Red Cell Distribution Width 13.2 % (11.5-14.5); Segmented Neutrophils % 67.7 %
[2016-12-08 01:33] LABS: BUN/Creatinine Ratio 15 (6-26); Blood Urea Nitrogen 11 mg/dL (7-20); Carbon Dioxide 28 mEq/L (19-29); Chloride 102 mEq/L (98-109); Glucose 84 mg/dL (70-99); Osmolality,Calculated 283 (280-300); Phosphorous 5.4 mg/dL (2.3-4.7); Potassium 4.5 mEq/L (3.5-4.5); Sodium 137 mEq/L (136-145); eGFR For African Americans > 60 (> 60); eGFR For Non-African Americans > 60 (> 60)
[2016-12-08 07:37] VITALS: BP 120/76
[2016-12-08] MEDS: *HR* OxyCODONE Immed Rel 5 MG TABLET PO PRN (07:41)
--- NOTE | 2016-12-08 08:51 | Discharge Summary ---
Date of Encounter: 12/08/16 Time of Encounter: 08:49 - Discharge Diagnosis (1) Cervical stenosis of spinal canal Priority: Primary Status: Acute (2) Hypotension Priority: Secondary Status: Resolved Qualifiers: Hypotension type: unspecified hypotension type Qualified Code(s): I95.9 - Hypotension, unspecified (3) Headache Priority: Primary Status: Resolved Qualifiers: Headache type: unspecified Headache chronicity pattern: unspecified pattern Intractability: not intractable Qualified Code(s): R51 - Headache (4) Tobacco abuse Priority: Secondary Status: Chronic (5) DVT prophylaxis Priority: Secondary Status: Acute (6) Altered mental status Priority: Primary Status: Resolved Qualifiers: Altered mental status type: unspecified Qualified Code(s): R41.82 - Altered mental status, unspecified (7) Elevated transaminase level Priority: Secondary Status: Chronic (8) Cervical myelopathy Priority: Secondary Status: Acute - Discharge Medications Prescriptions: OxyCODONE Immed Rel [Roxicodone 5 MG] 10 mg PO Q6HR PRN #20 tab PRN Reason: Severe Pain Home Medications: Cetirizine HCl [Zyrtec] 10 mg PO DAILY 12/02/16 [History] Fluticasone Propionate Nasal [Flonase] 100 mcg NS DAILY 12/02/16 [History] Montelukast [Singulair] 10 mg PO QPM 12/02/16 [History] Sertraline [Zoloft] 50 mg PO DAILY 12/02/16 [History] OxyCODONE Immed Rel [Roxicodone 5 MG] 10 mg PO Q6HR PRN #20 tab 12/08/16 [Rx] Allergies/Adverse Reactions: Allergies NSAIDS (Non-Steroidal Anti-Inflamma Allergy (Verified 10/01/16 00:00) Dizziness Date of admission: 12/03/16 01:45 Primary care physician: Benny Verduzco MD Consults: 12/05/16 18:06 Consult to Occupational Therapy [CONS] Routine Comment: Evaluate, develop and implement POC Reason for Consult: Postoperative Consult to Physical Therapy [CONS] Routine Comment: Evaluate, develop and implement POC Reason for Consult: Postoperative Consult to Spine Navigator [CONS] [CONS] Routine Discharging clinician: Darlene Caro Anticipated date of discharge: 12/08/16 - Patient Status Disposition: Home, Self-Care Condition: Good Functional capacity at discharge: independent ambulation Overall status at discharge: patient is back to baseline - Discharge Instructions Follow Up With: Tabby Sparks MD [Non-Partnered Physician] - 12/12/16 10:45 am Additional Instructions: Please follow up with your primary care physician within five days after your discharge from the hospital. Please follow up with Dr. Oshea within one week after your discharge from the hospital. Please continue to wear the C-spine collar with ambulation and as per Dr. Oshea's instructions. Please resume all your home medications as prescribed by your primary care physician. - Diet and Activity Diet: advance to your usual diet Hospital course: Ms. Cheng is a 31 year old female with PMH of asthma, tobacco abuse, headache was admitted to the hospital for altered mental status. She was brought to the ER after she was found unresponsive at home. Upon arrival to the ER, patient was noted to have concerning changes on her CT head due to which MRI head was ordered. Patient was closely monitor and had improvement in her mental status without any intervention. She was found to have cervical myelopathy, spinal stenosis on her MRI head due to which Dr. Oshea was consulted. She underwent C -spine decompression surgery. She tolerated the procedure well and has had an uncomplicated post-op course. At this time patient is hemodynamically stable and is cleared for discharged by Dr. Oshea. She will be discharged to home with follow up with PCP and Dr. Oshea. she is to receive a C-spine collar prior to her discharge.Pt is educated that she has to wear the C-spine collar with ambulation and any movement. She demonstrates understanding of her diagnosis and agrees with the discharge care and plan. - Time Spent with Patient Total time spent providing and/or coordinating discharge services: Less than 30 minutes - Constitutional Vitals: Temp Pulse Resp BP Pulse Ox 98.3 F 76 15 120/76 97 12/08/16 07:30 12/08/16 07:30 12/08/16 07:30 12/08/16 07:30 12/08/16 07:30 General appearance: Present: A&O X 3, no acute distress, answers questions appropriately - Head Head exam: Present: atraumatic, normocephalic - Eye Eye exam: Present: conjuntiva pink, sclera anicteric - Neck Additional comments: midline dressing intact - Respiratory Respiratory exam: Present: CTAB. Absent: accessory muscle use, rales, rhonchi, wheezes - Cardiovascular Cardiovascular exam: Present: RRR, +S1, +S2. Absent: diastolic murmur, gallop, rubs, systolic murmur - GI/Abdominal GI/Abdominal exam: Present: normal bowel sounds, soft, no peritoneal signs. Absent: distended, tenderness - Extremities Exam Extremities exam: Present: warm, radial pulses palpable and symetrical. Absent : calf tenderness, cyanotic, pedal edema - Neurological Exam Neurological exam: Present: alert, oriented X3, no focal deficits - Psychiatric Psychiatric exam: Present: normal affect, normal mood - VTE Documentation of Mechanical Device: Intermittent pneumatic compression device
== END 2016-12-08 10:27 | disposition home or self-care (01) | DRG 23 ==
LOC: ICNU 18:16 → EMEROO 18:16 → ICNU 20:43 → SUATTDRO 12-03 01:45 → 2NENU 12-03 10:50 → 3NENU 12-05 14:09
PROVIDERS: ADMIT Family Medicine; ATTEND Internal Medicine

== ENCOUNTER 2020-07-01 14:54 | Inpatient (IN) ==
[2020-07-01] MEDS ORDERED: Ondansetron 4 MG/2 ML VIAL IVP ONE (15:01)
[2020-07-01] MEDS ORDERED: 0.9 % Sodium Chloride 1,000 ML IVC ONE (15:01)
[2020-07-01] MEDS ORDERED: *HR* HYDROmorphone (PF) 1 MG/ML SYRINGE IVP ONE ×2 (15:02→18:14)
[2020-07-01] MEDS ORDERED: 0.9 % Sodium Chloride 1,000 ML IV ONE (15:36)
[2020-07-01] MEDS ORDERED: Acetaminophen 325 MG TABLET PO ONE (15:37)
[2020-07-01] MEDS ORDERED: Piperacillin/Tazobactam 3.375 GM in 0.9 % Sodium Chloride Mini Bag 100 ML IVPB ONE (15:42)
[2020-07-01] MEDS ORDERED: Gadolinium Contrast Agent (WT Based) IV PRN (15:44)
[2020-07-01] MEDS ORDERED: Isovue-370 500 ML BOTTLE IVP ONE (15:45)
[2020-07-01 15:49] LABS: Basophils % 0.2 %; Hematocrit 41.3 % (35.3-44.9); Hemoglobin 13.9 g/dL (11.5-15.4); Immature Granulocytes % 0.6 % (0-4); Lymphocytes # 1.1 K/mcL (0.6-4.6); Lymphocytes % 5.2 %; Mean Corpuscular HGB Conc 33.7 g/dL (31.6-35.5); Mean Corpuscular Hemoglobin 29.5 pg (28.0-33.3); Mean Corpuscular Volume 87.7 fL (83.0-100.0); Mean Platelet Volume 9.8 fL (9.4-12.4); Monocytes # 1.2 K/mcL (0.0-1.3); Neutrophils # 18.3 K/mcL (1.6-8.9); Platelet Count 225 K/mcL (140-400); Red Blood Count 4.71 M/mcL (3.82-4.97); Red Cell Distribution Width 12.4 % (11.5-14.5); White Blood Count 20.8 K/mcL (4.3-11.1)
[2020-07-01 16:06] LABS: Bacteria,Urine Moderate per hpf (None-Few); Bilirubin,Urine Negative (Negative); Blood,Urine Trace (Negative); Clarity,Urine Turbid (Clear); Color,Urine Yellow (Yellow); Glucose,Urine (UA) Normal (Normal); Ketones,Urine Negative (Negative); Leukocyte Esterase,Urine Large (Negative); Mucus,Urine Few per lpf (None-Few); Nitrite,Urine Positive (Negative); PH,Urine 6.5 pH Units (5.0-8.0); Protein,Urine 70 mg/dL (Neg-Trace); Specific Gravity,Urine 1.023 (1.010-1.025); Squamous Epithelial Cell,Urine Moderate per hpf (None-Few); Urobilinogen,Urine Normal (Normal); WBC,Urine 50-100 per hpf (0-3)
[2020-07-01 16:09] LABS: Alanine Aminotransferase 32 Units/L (7-52); Alkaline Phosphatase 60 Units/L (34-104); Amylase 29 Units/L (29-103); Aspartate Amino Transferase 21 Units/L (13-39); BUN/Creatinine Ratio 12 (6-26); Bilirubin,Direct 0.1 mg/dL (0.0-0.2); Bilirubin,Indirect 0.5 mg/dL (0.0-1.0); Bilirubin,Total 0.6 mg/dL (0.3-1.0); Blood Urea Nitrogen 9 mg/dL (6-20); Calcium 9.4 mg/dL (8.6-10.3); Carbon Dioxide 23 mEq/L (23-29); Chloride 95 mEq/L (98-107); Globulin 3.9 g/dL (2.4-3.5); Glucose 126 mg/dL (70-105); Lipase 9 Units/L (11-82); Osmolality,Calculated 264 (280-300); Sodium 127 mEq/L (136-145); Total Protein 7.9 g/dL (6.4-8.9); eGFR For African Americans > 60 (> 60); eGFR For Non-African Americans > 60 (> 60)
[2020-07-01 16:19] LABS: Amphetamine Screen,Urine Positive ng/mL (Cutoff=1000); Barbiturate Screen,Urine Negative ng/mL (Cutoff=200); Benzodiazepines Screen,Urine Negative ng/mL (Cutoff=200); Cannabinoid Screen,Urine Positive ng/mL (Cutoff = 50); Cocaine Screen,Urine Negative ng/mL (Cutoff= 300); Opiate Screen,Urine Negative ng/mL (Cutoff=300); Phencyclidine Screen,Urine Negative ng/mL (Cutoff=25)
[2020-07-01] MEDS ORDERED: EPINEPHrine 1 MG/ML VIAL ONE ×2 (18:25→18:30)
[2020-07-01] MEDS ORDERED: methylPREDNISolone 125 MG/2 ML VIAL ONE (18:30)
[2020-07-01] MEDS ORDERED: Famotidine 20 MG/2 ML VIAL ONE (18:30)
[2020-07-01] MEDS ORDERED: 0.9 % Sodium Chloride 1,000 ML ONE (18:34)
[2020-07-01] MEDS ORDERED: Famotidine 20 MG/2 ML VIAL IVP ONE (18:37)
[2020-07-01] MEDS ORDERED: methylPREDNISolone 125 MG/2 ML VIAL IVP ONE (18:38)
[2020-07-01] MEDS ORDERED: EPINEPHrine 1 MG/ML VIAL IM ONE (18:38)
[2020-07-01] MEDS ORDERED: Ipratropium/Albuterol Neb 3 ML ONE (19:05)
[2020-07-01] MEDS ORDERED: Ipratropium/Albuterol Neb 3 ML IH ONE (19:11)
[2020-07-01] MEDS ORDERED: Ondansetron 4 MG/2 ML VIAL IVP PRN (22:05)
[2020-07-01] MEDS ORDERED: Naloxone 0.4 MG/ML INJ IVP PRN (22:05)
[2020-07-01] MEDS: Nicotine 14 MG PATCH.TD24 TD SCH (22:46)
[2020-07-01] MEDS: Ringers Solution, Lactated 1,000 ML IVC SCH (22:46)
[2020-07-02] MEDS: Piperacillin/Tazobactam 3.375 GM in 0.9 % Sodium Chloride Mini Bag 100 ML IVPB SCH ×3 (00:12→18:11)
[2020-07-02] MEDS: *HR* Heparin 5,000 UNIT/ML VIAL SQ SCH ×2 (04:45→18:11)
[2020-07-02 05:46] LABS: Basophils % 0.1 %; Hematocrit 37.6 % (35.3-44.9); Immature Granulocytes % 0.6 % (0-4); Lymphocytes # 0.4 K/mcL (0.6-4.6); Lymphocytes % 2.7 %; Mean Corpuscular HGB Conc 32.2 g/dL (31.6-35.5); Mean Corpuscular Volume 90.2 fL (83.0-100.0); Mean Platelet Volume 9.4 fL (9.4-12.4); Monocytes # 0.1 K/mcL (0.0-1.3); Monocytes % 0.8 %; Platelet Count 201 K/mcL (140-400); Red Blood Count 4.17 M/mcL (3.82-4.97); Red Cell Distribution Width 12.6 % (11.5-14.5); Segmented Neutrophils % 95.8 %; White Blood Count 13.6 K/mcL (4.3-11.1)
[2020-07-02 05:47] LABS: Hemoglobin 12.1 g/dL (11.5-15.4)
[2020-07-02 06:05] LABS: BUN/Creatinine Ratio 13 (6-26); Blood Urea Nitrogen 8 mg/dL (6-20); Calcium 8.2 mg/dL (8.6-10.3); Carbon Dioxide 22 mEq/L (23-29); Chloride 105 mEq/L (98-107); Glucose 217 mg/dL (70-105); Osmolality,Calculated 283 (280-300); Potassium 3.7 mEq/L (3.5-5.1); Sodium 134 mEq/L (136-145); eGFR For African Americans > 60 (> 60); eGFR For Non-African Americans > 60 (> 60)
[2020-07-02] MEDS ORDERED: 0.9 % Sodium Chloride 1,000 ML IV ONE (08:24)
[2020-07-02] MEDS: Ringers Solution, Lactated 1,000 ML IVC SCH (11:12)
[2020-07-02] MEDS: Nicotine 14 MG PATCH.TD24 TD SCH (22:55)
[2020-07-03] MEDS: *HR* Heparin 5,000 UNIT/ML VIAL SQ SCH ×2 (03:46→17:44)
[2020-07-03] MEDS: Piperacillin/Tazobactam 3.375 GM in 0.9 % Sodium Chloride Mini Bag 100 ML IVPB SCH ×3 (04:08→11:23)
[2020-07-03 07:11] LABS: Basophils % 0.2 %; Eosinophils % 0.3 %; Hemoglobin 11.4 g/dL (11.5-15.4); Segmented Neutrophils % 81.3 %
[2020-07-03 07:13] LABS: Eosinophils # 0.1 K/mcL (0.0-0.6); Hematocrit 33.8 % (35.3-44.9); Immature Granulocytes % 0.9 % (0-4); Immature Platelets 6.4 % (1.1-6.1); Lymphocytes # 2.1 K/mcL (0.6-4.6); Lymphocytes % 12.9 %; Mean Corpuscular HGB Conc 33.7 g/dL (31.6-35.5); Mean Corpuscular Hemoglobin 29.5 pg (28.0-33.3); Mean Corpuscular Volume 87.6 fL (83.0-100.0); Mean Platelet Volume 11.1 fL (9.4-12.4); Monocytes # 0.7 K/mcL (0.0-1.3); Monocytes % 4.4 %; Platelet Count 177 K/mcL (140-400); Red Blood Count 3.86 M/mcL (3.82-4.97); Red Cell Distribution Width 12.7 % (11.5-14.5); White Blood Count 16.4 K/mcL (4.3-11.1)
[2020-07-03 07:14] LABS: Neutrophils # 13.3 K/mcL (1.6-8.9)
[2020-07-03 07:20] LABS: BUN/Creatinine Ratio 18 (6-26); Blood Urea Nitrogen 10 mg/dL (6-20); Calcium 8.2 mg/dL (8.6-10.3); Carbon Dioxide 20 mEq/L (23-29); Chloride 111 mEq/L (98-107); Glucose 99 mg/dL (70-105); Magnesium 1.9 mg/dL (1.6-2.6); Osmolality,Calculated 285 (280-300); Potassium 4.2 mEq/L (3.5-5.1); Sodium 138 mEq/L (136-145); eGFR For African Americans > 60 (> 60); eGFR For Non-African Americans > 60 (> 60)
[2020-07-03] MEDS ORDERED: cefTRIAXone 2,000 MG in 0.9 % Sodium Chloride Mini Bag 100 ML IVPB SCH (18:00)
[2020-07-03] MEDS: Nicotine 14 MG PATCH.TD24 TD SCH (22:07)
[2020-07-04 03:03] LABS: Basophils % 0.1 %; Eosinophils % 0.4 %; Hematocrit 34.2 % (35.3-44.9); Hemoglobin 11.2 g/dL (11.5-15.4); Immature Granulocytes % 0.6 % (0-4); Lymphocytes # 1.9 K/mcL (0.6-4.6); Lymphocytes % 26.9 %; Mean Corpuscular HGB Conc 32.7 g/dL (31.6-35.5); Mean Corpuscular Hemoglobin 28.5 pg (28.0-33.3); Mean Platelet Volume 10.3 fL (9.4-12.4); Monocytes # 0.5 K/mcL (0.0-1.3); Monocytes % 6.5 %; Neutrophils # 4.5 K/mcL (1.6-8.9); Platelet Count 221 K/mcL (140-400); Red Blood Count 3.93 M/mcL (3.82-4.97); Red Cell Distribution Width 12.8 % (11.5-14.5); Segmented Neutrophils % 65.5 %
[2020-07-04 03:10] LABS: BUN/Creatinine Ratio 13 (6-26); Blood Urea Nitrogen 6 mg/dL (6-20); Calcium 8.6 mg/dL (8.6-10.3); Carbon Dioxide 20 mEq/L (23-29); Chloride 102 mEq/L (98-107); Glucose 106 mg/dL (70-105); Magnesium 1.7 mg/dL (1.6-2.6); Osmolality,Calculated 276 (280-300); Potassium 4.4 mEq/L (3.5-5.1); Sodium 134 mEq/L (136-145); White Blood Count 6.9 K/mcL (4.3-11.1); eGFR For African Americans > 60 (> 60); eGFR For Non-African Americans > 60 (> 60)
[2020-07-04] MEDS: *HR* Heparin 5,000 UNIT/ML VIAL SQ SCH (05:40)
[2020-07-04 09:21] VITALS: BP 108/73
== END 2020-07-04 11:28 | disposition home or self-care (01) | DRG 720 ==
LOC: 2NENU 14:54 → EMEROOARM 14:54 → SUATTDRO 22:00 → 2NENU 22:30 → SUATTDRO 07-02 16:12
PROVIDERS: ADMIT Student in an Organized Health Care Education/Training Program; ATTEND Internal Medicine

== ENCOUNTER 2020-07-30 08:05 | Observation (INO) ==
[2020-07-30] MEDS ORDERED: CeFAZolin Syr 2,000MG/20 ML 2,000 MG/20 ML SYRINGE IVPB ONE (08:23)
[2020-07-30] MEDS ORDERED: Ringers Solution, Lactated 1,000 ML IVC SCH (08:30)
[2020-07-30] MEDS ORDERED: *HR* OxyCODONE Immed Rel 5 MG TABLET PO PRN (08:58)
[2020-07-30] MEDS ORDERED: Dexamethasone 4 MG/ML VIAL ONE (08:58)
[2020-07-30] MEDS ORDERED: *HR* FentaNYL (PF) 100 MCG/2 ML VIAL ONE (08:58)
[2020-07-30] MEDS ORDERED: *HR* HYDROmorphone (PF) 1 MG/ML SYRINGE IVP PRN (08:58)
[2020-07-30] MEDS ORDERED: Ondansetron 4 MG/2 ML VIAL IVP PRN ×2 (08:58→13:57)
[2020-07-30] MEDS ORDERED: Lidocaine -MPF 2% 2 ML VIAL ONE (08:58)
[2020-07-30] MEDS ORDERED: Ondansetron 4 MG/2 ML VIAL ONE (08:58)
[2020-07-30] MEDS ORDERED: *HR* Propofol 200 MG/20 ML VIAL IVP ONE (08:58)
[2020-07-30] MEDS ORDERED: *HR* Succinylcholine 200 MG/10 ML VIAL IVP ONE (08:58)
[2020-07-30] MEDS ORDERED: Lidocaine -MPF 4% 5 ML AMPUL ONE (08:58)
[2020-07-30] MEDS ORDERED: *HR* Phenylephrine 10 MG/ML VIAL ONE (09:40)
[2020-07-30] MEDS ORDERED: *HR* Remifentanil 1 MG VIAL IVP ONE ×2 (09:44→12:02)
[2020-07-30] MEDS ORDERED: Bacitracin 50,000 UNIT, Polymyxin B Sulfate 500,000 UNIT, Sodium Chloride IRRigation 1,... IR ONE (10:15)
[2020-07-30] MEDS ORDERED: *HR* HYDROMORPHONE 2 MG/ML VIAL ONE (11:33)
[2020-07-30] MEDS ORDERED: *HR* HYDROcodone/Acet 5/325 mg TABLET PO PRN (13:57)
[2020-07-30] MEDS ORDERED: Naloxone 0.4 MG/ML INJ IVP PRN (13:57)
[2020-07-30] MEDS ORDERED: Acetaminophen 325 MG TABLET PO PRN (13:57)
[2020-07-30] MEDS: *HR* OxyCODONE Immed Rel 5 MG TABLET PO PRN ×2 (15:04→20:15)
[2020-07-30] MEDS: Ringers Solution, Lactated 1,000 ML IVC SCH ×2 (15:06→20:21)
[2020-07-30] MEDS: CeFAZolin 2 GM/120 ML BAG IVPB SCH (16:34)
[2020-07-31] MEDS: CeFAZolin 2 GM/120 ML BAG IVPB SCH (00:15)
[2020-07-31] MEDS: *HR* OxyCODONE Immed Rel 5 MG TABLET PO PRN ×3 (07:33→20:35)
[2020-07-31] MEDS: Acetaminophen IV 500 MG/50 ML BAG IVPB SCH ×2 (10:50→18:19)
[2020-07-31] MEDS ORDERED: tiZANidine 4 MG TABLET PO PRN (12:00)
[2020-07-31] MEDS: diazePAM 10 MG/2 ML SYRINGE IVP SCH ×2 (12:51→18:19)
[2020-07-31] MEDS: Gabapentin 300 MG CAPSULE PO SCH ×2 (15:10→20:35)
[2020-07-31] MEDS: Ringers Solution, Lactated 1,000 ML IVC SCH (15:10)
[2020-08-01] MEDS: Ringers Solution, Lactated 1,000 ML IVC SCH (00:51)
[2020-08-01] MEDS: Acetaminophen IV 500 MG/50 ML BAG IVPB SCH (00:51)
[2020-08-01 07:39] VITALS: BP 132/86
[2020-08-01] MEDS: Gabapentin 300 MG CAPSULE PO SCH (08:48)
[2020-08-01] MEDS: *HR* OxyCODONE Immed Rel 5 MG TABLET PO PRN (08:48)
== END 2020-08-01 11:20 | disposition home or self-care (01) ==
LOC: SAMDAY 08:05 → 3NENU 08:05
PROVIDERS: ADMIT Orthopaedic Surgery Orthopaedic Surgery of the Spine; ATTEND Orthopaedic Surgery Orthopaedic Surgery of the Spine

== ENCOUNTER 2020-09-25 04:04 | Observation (INO) ==
[2020-09-25 06:49] LABS: Basophils % 0.2 %; Eosinophils % 0.1 %; Hematocrit 40.8 % (35.3-44.9); Immature Granulocytes % 0.8 % (0-4); Lymphocytes # 0.8 K/mcL (0.6-4.6); Lymphocytes % 6.4 %; Mean Corpuscular HGB Conc 31.9 g/dL (31.6-35.5); Mean Corpuscular Hemoglobin 28.2 pg (28.0-33.3); Mean Corpuscular Volume 88.5 fL (83.0-100.0); Monocytes # 0.7 K/mcL (0.0-1.3); Monocytes % 5.2 %; Neutrophils # 11.3 K/mcL (1.6-8.9); Platelet Count 313 K/mcL (140-400); Red Blood Count 4.61 M/mcL (3.82-4.97); Red Cell Distribution Width 12.7 % (11.5-14.5); Segmented Neutrophils % 87.3 %; White Blood Count 12.9 K/mcL (4.3-11.1)
[2020-09-25 07:05] LABS: BUN/Creatinine Ratio 11 (6-26); Blood Urea Nitrogen 9 mg/dL (6-20); Calcium 9.1 mg/dL (8.6-10.3); Carbon Dioxide 29 mEq/L (23-29); Chloride 104 mEq/L (98-107); Glucose 67 mg/dL (70-105); Osmolality,Calculated 283 (280-300); Potassium 4.2 mEq/L (3.5-5.1); Sodium 138 mEq/L (136-145); eGFR For African Americans > 60 (> 60); eGFR For Non-African Americans > 60 (> 60)
[2020-09-25 07:18] LABS: Troponin I 0.04 ng/mL (< 0.04)
[2020-09-25] MEDS ORDERED: Ringers Solution, Lactated 1,000 ML IVC ONE (07:54)
[2020-09-25] MEDS ORDERED: D5% in Water 1,000 ML IVC PRN (07:55)
[2020-09-25] MEDS ORDERED: Dextrose Gel 15 GM/37.5 ML TUBE PO PRN ×2 (07:55)
[2020-09-25] MEDS ORDERED: *HR* Dextrose 50 % in Water (Vial) 50 ML VIAL IVP PRN (07:55)
[2020-09-25 07:57] LABS: VBG HCO3 27 mEq/L (21-27); VBG PCO2 49 mmHg (41-51); VBG PH 7.34 pH Units (7.32-7.42); VBG PO2 167 mmHg (25-50)
[2020-09-25] MEDS ORDERED: *HR* OxyCODONE Immed Rel 5 MG TABLET PO PRN (08:41)
[2020-09-25] MEDS ORDERED: *HR* HYDROcodone/Acet 5/325 mg TABLET PO PRN (08:41)
[2020-09-25] MEDS ORDERED: Naloxone 0.4 MG/ML INJ IVP PRN (08:41)
[2020-09-25] MEDS ORDERED: Melatonin 3 MG TABLET PO PRN (08:41)
[2020-09-25] MEDS ORDERED: Ondansetron 4 MG/2 ML VIAL IVP PRN (08:41)
[2020-09-25] MEDS ORDERED: Acetaminophen 325 MG TABLET PO PRN (08:41)
[2020-09-25] MEDS ORDERED: Perflutren Lipid Microsphere 1.3 ML in 0.9 % Sodium Chloride 8.7 ML IVP PRN (08:43)
[2020-09-25 08:57] LABS: Folate 14.1 ng/mL (3.0-16.0)
[2020-09-25 09:17] LABS: Acetaminophen < 10 mcg/mL (10-20); Chol/HDL Ratio 2.3 (0-4.9); Cholesterol 125 mg/dL (< 200); HDL Cholesterol 55 mg/dL (40-59); LDL Cholesterol,Calculated 62 mg/dL (< 100); Salicylate < 2.5 mg/dL (15.0-30.0); Thyroid Stimulating Hormone 1.814 mcIU/mL (0.340-5.600); Triglycerides 41 mg/dL (< 150)
[2020-09-25] MEDS: Nicotine 21 MG PATCH.TD24 TD SCH (10:10)
[2020-09-25 10:21] LABS: Estimated Average Glucose 105 mg/dl; Hemoglobin A1C 5.3 %
[2020-09-25] MEDS: Ringers Solution, Lactated 1,000 ML IVC SCH (11:19)
[2020-09-25] MEDS: *HR* Heparin 5,000 UNIT/ML VIAL SQ SCH (17:42)
[2020-09-26] MEDS: Ringers Solution, Lactated 1,000 ML IVC SCH (01:51)
[2020-09-26 02:20] LABS: Bacteria,Urine Few per hpf (None-Few); Bilirubin,Urine Negative (Negative); Blood,Urine Large (Negative); Clarity,Urine Turbid (Clear); Color,Urine Yellow (Yellow); Glucose,Urine (UA) Normal (Normal); Ketones,Urine 10 mg/dL (Negative); Leukocyte Esterase,Urine Negative (Negative); Mucus,Urine Moderate per lpf (None-Few); Nitrite,Urine Negative (Negative); Protein,Urine 30 mg/dL (Neg-Trace); RBC,Urine 0-3 per hpf (0-3); Specific Gravity,Urine 1.023 (1.010-1.025); Squamous Epithelial Cell,Urine Few per hpf (None-Few); Urobilinogen,Urine Normal (Normal)
[2020-09-26 02:38] LABS: Amphetamine Screen,Urine Positive ng/mL (Cutoff=1000); Barbiturate Screen,Urine Negative ng/mL (Cutoff=200); Benzodiazepines Screen,Urine Negative ng/mL (Cutoff=200); Cannabinoid Screen,Urine Positive ng/mL (Cutoff = 50); Cocaine Screen,Urine Positive ng/mL (Cutoff= 300); Opiate Screen,Urine Negative ng/mL (Cutoff=300); Phencyclidine Screen,Urine Negative ng/mL (Cutoff=25)
[2020-09-26] MEDS: *HR* Heparin 5,000 UNIT/ML VIAL SQ SCH (05:19)
[2020-09-26 05:49] LABS: Hematocrit 34.6 % (35.3-44.9); Mean Corpuscular HGB Conc 32.9 g/dL (31.6-35.5); Mean Corpuscular Hemoglobin 28.9 pg (28.0-33.3); Mean Corpuscular Volume 87.6 fL (83.0-100.0); Mean Platelet Volume 9.5 fL (9.4-12.4); Platelet Count 260 K/mcL (140-400); Red Blood Count 3.95 M/mcL (3.82-4.97); Red Cell Distribution Width 12.7 % (11.5-14.5)
[2020-09-26 05:51] LABS: Hemoglobin 11.4 g/dL (11.5-15.4)
[2020-09-26 06:04] LABS: Prothrombin Time 12.1 Seconds (9.4-12.1)
[2020-09-26 06:11] LABS: BUN/Creatinine Ratio 10 (6-26); Blood Urea Nitrogen 6 mg/dL (6-20); Calcium 8.8 mg/dL (8.6-10.3); Carbon Dioxide 29 mEq/L (23-29); Chloride 104 mEq/L (98-107); Glucose 88 mg/dL (70-105); Magnesium 1.9 mg/dL (1.6-2.6); Osmolality,Calculated 281 (280-300); Phosphorous 3.5 mg/dL (2.7-4.5); Potassium 3.5 mEq/L (3.5-5.1); Sodium 137 mEq/L (136-145); eGFR For African Americans > 60 (> 60); eGFR For Non-African Americans > 60 (> 60)
[2020-09-26 07:32] VITALS: BP 116/79
[2020-09-26] MEDS: Nicotine 21 MG PATCH.TD24 TD SCH (08:23)
[2020-09-26 08:39] LABS: Hematocrit 35.9 % (35.3-44.9); Hemoglobin 11.4 g/dL (11.5-15.4)
== END 2020-09-26 11:48 | disposition home or self-care (01) ==
LOC: EMEROOARM 04:04 → 2ANU 04:04
PROVIDERS: ADMIT Internal Medicine; ATTEND Internal Medicine